=== PATIENT | female | born 1965 | race Caucasian/White ===

== ENCOUNTER 2018-12-04 01:23 | Outpatient (CLI) | payer BC, SELFPAY ==
--- NOTE | 2018-12-04 09:21 | DI.MAMMO_ITS ---
SYMPTOM/DIAGNOSIS: SCREENING, [facility], Z00.00 MAMMOGRAMS: Mammograms were interpreted according to the usual protocol including computer analysis with CAD system, tomosynthesis and C view imaging. Comparison is made with exams from [id number]. The breasts are composed of scattered fibroglandular densities. Breast density, category B. No suspicious masses or suspicious microcalcifications are seen. There has been no significant change. IMPRESSION: Category 1, negative mammogram. Yearly screening mammography is recommended. [facility] ASSESSMENT OF FINDINGS: Negative. Category 1. Patient will receive a letter notifying them of these results. BI-RADS category B. There are scattered areas of fibroglandular density.
== END 2018-12-04 01:43 ==
PROVIDERS: PCP Family Medicine; Visit Provider Family Medicine
DX: Z00.00 Encounter for general adult medical examination without abnormal findings (principal); Z12.31 Encounter for screening mammogram for malignant neoplasm of breast
CPT/HCPCS: 77063; 77067

== ENCOUNTER 2019-01-13 12:34 | Outpatient (REF) | payer BC, SELFPAY | END 2019-01-13 12:54 | LOC: NCHCN 12:34 | PROVIDERS: PCP Family Medicine; Visit Provider Family Medicine | DX: J02.9 Acute pharyngitis, unspecified (principal) | CPT/HCPCS: 87070 ==

== ENCOUNTER 2019-03-11 12:44 | Outpatient (REF) | payer BC, SELFPAY ==
[2019-03-13 09:10] LABS: HSV 1 DNA Result Negative; HSV 2 DNA Result Negative; Varicella Zoster DNA Result Negative
== END 2019-03-11 13:04 ==
LOC: NCHCN 12:44
PROVIDERS: PCP Family Medicine; Visit Provider Family Medicine
DX: R21 Rash and other nonspecific skin eruption (principal)
CPT/HCPCS: 87529; 87798

== ENCOUNTER 2019-04-19 15:05 | Outpatient (REF) | payer BC, SELFPAY ==
[2019-04-19 19:24] LABS: ALT 46 U/L (12-78); AST 21 U/L (15-37); Albumin 3.8 g/dL (3.4-5.0); Alkaline Phosphatase 74 U/L (46-116); Bilirubin, Direct 0.05 mg/dL (0.00-0.20); Bilirubin, Total 0.2 mg/dL (0.2-1.0); Total Protein 6.8 g/dL (6.4-8.2)
== END 2019-04-19 15:25 ==
LOC: NCHCN 15:05
PROVIDERS: PCP Family Medicine; Visit Provider Family Medicine
DX: Z79.899 Other long term (current) drug therapy (principal)
CPT/HCPCS: 80076

== ENCOUNTER 2019-08-16 17:15 | Outpatient (REF) | payer BC, SELFPAY ==
--- NOTE | 2019-08-16 14:30 | SKI_PTH ---
PATIENT: Swetha Herron LOC: [facility] U#:[id number] AGE/SX: 54/F ROOM: RE08/16/[address]: Chantal Wallis : 1965 BED: DIS: 08/16/2019 SPEC #: [id number] RECD: 08/16/19 18:30 STATUS: VICENTA REGenet #: [id number] MACIE: 08/16/19 14:[address]: Chantal Wallis DEPT: Surgical Specimen RECD BY: Polly Green Tissues: 1 - SKIN BIOPSY(SHAVE/PUNCH) Procedures: SKIN LEVEL 4 Comments: [id number]
== END 2019-08-16 17:35 ==
LOC: NCHCN 17:15
PROVIDERS: PCP Family Medicine; Visit Provider Family Medicine
DX: D48.5 Neoplasm of uncertain behavior of skin (principal); R22.41 Localized swelling, mass and lump, right lower limb
CPT/HCPCS: 88305

== ENCOUNTER 2019-09-17 15:36 | Outpatient (REF) | payer BC, SELFPAY ==
[2019-09-20 10:57] LABS: TSH (W/Ref FT4) 2.62 uIU/mL (0.36-3.74)
== END 2019-09-17 15:56 ==
LOC: NCHCN 15:36
PROVIDERS: PCP Family Medicine; Visit Provider Family Medicine
DX: E03.9 Hypothyroidism, unspecified (principal); R73.03 Prediabetes
CPT/HCPCS: 83036; 84443

== ENCOUNTER 2020-02-18 02:15 | Outpatient (CLI) | payer BC, SELFPAY ==
--- NOTE | 2020-02-18 | DI.MAMMO_ITS ---
EXAM: MAMMO SCREENING CLINICAL HISTORY: SCREENING, [facility],Z00.00 TECHNIQUE: Mammograms were interpreted according to the usual protocol including computer analysis w [employer] CAD system, tomosynthesis and C-view imaging. COMPARISON: 2011 through 2018 FINDINGS: The breasts are composed of scattered fibroglandular densities, Breast Density category B. No suspicious masses or suspicious microcalcifications are seen. No skin thickening or abnormal axillary lymph nodes are seen. There has been no significant change from prior exams. IMPRESSION: BI-RADS category 1, yearly screening mammography is recommended. Breast density category B, scattered fibroglandular densities.
== END 2020-02-18 02:35 ==
PROVIDERS: PCP Family Medicine; Visit Provider Family Medicine
DX: Z00.00 Encounter for general adult medical examination without abnormal findings (principal); Z12.31 Encounter for screening mammogram for malignant neoplasm of breast
CPT/HCPCS: 77063; 77067

== ENCOUNTER 2020-04-21 18:03 | Outpatient (REF) | payer BC, SELFPAY ==
[2020-04-21 20:03] LABS: ALT 45 U/L (14-59); AST 23 U/L (15-37); Albumin 4.1 g/dL (3.4-5.0); Alkaline Phosphatase 78 U/L (46-116); Anion Gap 7.4 mmol/L (3-11); BUN 16 mg/dL (7-18); Bilirubin, Total 0.3 mg/dL (0.2-1.0); CO2 27.6 mmol/L (21.0-32.0); CREATININE 0.84 mg/dL (0.55-1.02); Calcium 9.3 mg/dL (8.5-10.1); Calculated LDL 164 mg/dL (<100); Chloride 105 mmol/L (98-107); Cholesterol 276 mg/dL (<200); Glucose 110 mg/dL (74-106); HDL Cholesterol 63 mg/dL (40-60); Potassium 4.6 mmol/L (3.5-5.1); Sodium 140 mmol/L (136-145); TSH (W/Ref FT4) 1.44 uIU/mL (0.36-3.74); Total Protein 7.1 g/dL (6.4-8.2); Triglyceride 246 mg/dL (<150)
[2020-04-21 21:34] LABS: Hemoglobin A1C 5.9 % (3.8-5.6)
== END 2020-04-21 18:23 ==
LOC: NCHCN 18:03
PROVIDERS: PCP Family Medicine; Visit Provider Family Medicine
DX: I10 Essential (primary) hypertension (principal); R73.03 Prediabetes; E03.9 Hypothyroidism, unspecified; E78.5 Hyperlipidemia, unspecified
CPT/HCPCS: 80053; 80061; 83036; 84443

== ENCOUNTER 2021-04-20 10:28 | Outpatient (REF) | payer BC, SELFPAY ==
[2021-04-20 15:46] LABS: Hemoglobin A1C 6.3 % (<5.7)
[2021-04-20 17:03] LABS: Anion Gap 11.3 mmol/L (3-11); BUN 12 mg/dL (7-18); CO2 26.7 mmol/L (21.0-32.0); CREATININE 0.8 mg/dL (0.55-1.02); Calcium 8.9 mg/dL (8.5-10.1); Calculated LDL 159 mg/dL (<100); Chloride 106 mmol/L (98-107); Cholesterol 254 mg/dL (<200); Glucose 126 mg/dL (74-106); HDL Cholesterol 67 mg/dL (40-60); Potassium 4.2 mmol/L (3.5-5.1); Sodium 144 mmol/L (136-145); TSH (W/Ref FT4) 2.91 uIU/mL (0.36-3.74); Triglyceride 141 mg/dL (<150)
== END 2021-04-20 10:29 | disposition home or self-care (01) ==
LOC: NCHCN 10:28
PROVIDERS: PCP Family Medicine; Visit Provider Family Medicine
DX: I10 Essential (primary) hypertension (principal); R73.03 Prediabetes; E78.5 Hyperlipidemia, unspecified; E03.9 Hypothyroidism, unspecified
CPT/HCPCS: 80048; 80061; 83036; 84443

== ENCOUNTER 2021-05-29 03:14 | Outpatient (CLI) | payer BC, SELFPAY ==
--- NOTE | 2021-05-29 | DI.MAMMO_ITS ---
Exam(s) MAMMO SCREENING EXAM: MAMMO SCREENING CLINICAL HISTORY: SCREENING,Z12.31 TECHNIQUE: Mammograms were interpreted according to the usual protocol including computer analysis w [employer] CAD system, tomosynthesis and C-view imaging. COMPARISON: 2011 through 2019 FINDINGS: The breasts are composed of scattered fibroglandular densities, Breast Density category B. No suspicious masses or suspicious microcalcifications are seen. No skin thickening or abnormal axillary lymph nodes are seen. There has been no significant change from prior exams. IMPRESSION: BI-RADS Category 1, Negative mammogram Yearly screening mammography is recommended. Breast Density - Category B, scattered fibroglandular densities. A negative radiographic report should not delay biopsy if a dominant or clinically suspicious mass is present. Up to ten percent of cancers are not identified on mammography. A negative report may reinforce clinical impression. Adenosis and dense breasts may obscure an underlying neoplasm. False positive reports average 6 to 10%. Patient will receive a letter notifying them of these results.
== END 2021-05-29 03:34 ==
PROVIDERS: PCP Family Medicine; Visit Provider Family Medicine
DX: Z12.31 Encounter for screening mammogram for malignant neoplasm of breast (principal)
CPT/HCPCS: 77063; 77067

== ENCOUNTER 2021-08-02 14:04 | Outpatient (REF) | payer BC, SELFPAY ==
[2021-08-03 02:10] LABS: Hemoglobin A1C 5.9 % (<5.7)
== END 2021-08-02 14:05 | disposition home or self-care (01) ==
LOC: NCHCN 14:04
PROVIDERS: PCP Family Medicine; Visit Provider Family Medicine
DX: R73.03 Prediabetes (principal)
CPT/HCPCS: 83036

== ENCOUNTER 2021-11-30 18:24 | Outpatient (REF) | payer BC, SELFPAY ==
[2021-11-30 19:13] LABS: TSH (W/Ref FT4) 0.05 uIU/mL (0.36-3.74)
[2021-11-30 19:20] LABS: Hemoglobin A1C 5.8 % (<5.7)
[2021-11-30 19:44] LABS: FREE T4 1.38 ng/dL (0.76-1.46)
[2021-12-03 13:34] LABS: HIV-1/2 Ag & Ab Screen Negative (Negative)
[2021-12-03 14:56] LABS: Hepatitis C Ab w Rflx HCV PCR Negative (Negative)
== END 2021-11-30 18:25 | disposition home or self-care (01) ==
LOC: NCHCN 18:24
PROVIDERS: PCP Family Medicine; Visit Provider Family Medicine
DX: Z00.00 Encounter for general adult medical examination without abnormal findings (principal); E03.9 Hypothyroidism, unspecified; R73.03 Prediabetes; Z11.4 Encounter for screening for human immunodeficiency virus [HIV]; Z11.59 Encounter for screening for other viral diseases
CPT/HCPCS: 86803; 87389; 83036; 84439; 84443

== ENCOUNTER 2022-02-23 13:06 | Outpatient (REF) | payer BC, SELFPAY ==
[2022-02-23 13:31] LABS: ALT 48 U/L (14-59); AST 21 U/L (15-37); Albumin 3.6 g/dL (3.4-5.0); Alkaline Phosphatase 85 U/L (46-116); BUN 11 mg/dL (7-18); Bilirubin, Total 0.3 mg/dL (0.2-1.0); CREATININE 0.9 mg/dL (0.55-1.02); Calcium 8.7 mg/dL (8.5-10.1); Chloride 105 mmol/L (98-107); Glucose 153 mg/dL (74-106); Potassium 3.8 mmol/L (3.5-5.1); Sodium 140 mmol/L (136-145); Total Protein 6.4 g/dL (6.4-8.2)
[2022-02-26 12:24] LABS: TSH (W/Ref FT4) 0.06 uIU/mL (0.36-3.74)
[2022-02-26 12:41] LABS: FREE T4 1.24 ng/dL (0.76-1.46)
== END 2022-02-23 13:07 | disposition home or self-care (01) ==
LOC: LBN 13:06
PROVIDERS: PCP Family Medicine; Visit Provider Physician Assistant Medical
DX: U07.1 COVID-19 (principal)
CPT/HCPCS: 80053; 84439; 84443

== ENCOUNTER 2022-02-28 15:05 | Outpatient (CLI) | payer BC, SELFPAY ==
--- NOTE | 2022-02-28 14:30 | DI.RAD_ITS ---
Exam(s) XR KNEE RT 3V AP,LAT,AL EXAM: XR KNEE RT 3V AP,LAT,AL CLINICAL HISTORY: right knee pain. TECHNIQUE: 2D digital imaging was performed. COMPARISON: CR RIGHT KNEE LIMITED 1 OR 2 VIEW from 05/22/2017 FINDINGS: 3 views There is no evidence of fracture nor large joint effusion. There is small amount of increased joint fluid. There are moderate degenerative changes in the medial compartment with mild medial joint spac e narrowing and marginal osteophytes off the medial compartment. The lateral compartment exhibits no rmal height. Some degenerative change also evident in the patellofemoral compartment. IMPRESSION: Degenerative changes in the medial and patellofemoral compartments. Small amount of increased joint fluid. DATA REPOSITORY: RADIATION DOSE DELIVERED:
== END 2022-02-28 15:06 | disposition home or self-care (01) ==
LOC: DIORS 15:05
PROVIDERS: PCP Family Medicine; Referring Provider Family Medicine; Visit Provider Physician Assistant
DX: M17.11 Unilateral primary osteoarthritis, right knee (principal)
CPT/HCPCS: 73562

== ENCOUNTER 2022-05-09 15:11 | Outpatient (REF) | payer BC, SELFPAY ==
--- OUTSIDE RECORDS SUMMARY | 2022-05-09 15:18 | XMS_ITS | Encounter Summary ---
:1965 Author Organization [facility] Address [address] [place] [address] Care Team Providers Name Role Phone Unavailable Primary Care Provider Unavailable Encounter Details Date Type Department Care Team Description 06/10/2005 Results Only [facility] - Chantal Avina MD conversion [address] [facility] [address] [place] [phone] (Wo rk) Social History Tobacco Use Types Packs/Day Years Used Date Never Assessed Sex Assigned at Date Recorded Not on file documented as of this encounter Plan of Treatment Not on filedocumented as of this encounter Procedures Procedure Name Priority Date/Time Associated Diagnosis Comme nts CYTOPATHOLOGY Routine 06/10/2005 0:00 EDT Results for this procedure are i n the results section . documented in this encounter Results CYTOPATHOLOGY (06/10/2005 0:00 EDT) Pathology Report: CYTOPATHOLOGY REPORT [facility] Reports generated via electronic interface contain shelley ginal data; however they are lacking the format of the original re port. Caution should be taken when reading/interpreting unfo rmatted reports. Name: ? CRISS MONROE ? Accession #: ? [id number] : ? 1965 (Age: 40) ??F ?Collect Date: ? 05/23 Location: ? [facility] ? Receive Date : ? 06/12/2005 Provider: ?CHANTAL PETERSON MD Copy to: ? Specimen/Source: ? ThinPrep Pap Test, Cervix/Endocervix, processed on [employer] ThinPrep Imaging System, with manual evaluation Last Menstrual Period: ? 05/27/05 Treatment History: ? Miscellaneous treatment: D+C 11/23 and 07/26 Other: ? HPVA - HPV testing requested if ASC-US on the current ThinPrep Pap test. ? SPECIMEN ADEQUACY ? Satisfactory for Evaluation - transformation zone component present GENERAL CATEGORIZATION ? Negative for Intraepithelial Lesion or Malignan cy ? Document reviewed and electronically signed by: ? Ana Mari, SCT(ASCP) ? Report Date: ??06/19/2005 10:20 End of Report Specimen Performing Organization Address City/State/ZIP Code Phon e Number [facility] [address] [place] [address] SERVICES [facility] [address] [place] [address] documented in this encounter Visit Diagnoses Not on filedocumented in this encounter
--- OUTSIDE RECORDS SUMMARY | 2022-05-09 15:18 | XMS_ITS | Encounter Summary ---
:1965 Author Organization [facility] Address [address] [place] [address] Care Team Providers Name Role Phone Unknown, Provider Primary Care Provider Encounter Details Date Type Department Care Team Description 11/30/2021 Lab Requisition [facility] Outr Resulting Lab, Pathology & Laboratory Provider [facility] [address] [place] [address] Social History Tobacco Use Types Packs/Day Years Used Date Never Assessed Sex Assigned at Date Recorded Not on file documented as of this encounter Plan of Treatment Not on filedocumented as of this encounter Procedures Procedure Name Priority Date/Time Associated Comments Diagnosis HIV 1/2 ANTIGEN AND Routine 11/30/2021 15:44 Resu lts for this ANTIBODY, 4TH EST procedure are in GENERATION the results section. documented in this encounter Results HIV 1/2 ANTIGEN AND ANTIBODY, 4TH GENERATION (11/30/2021 15:44 EST) HIV 1 and 2 NegativeComment: If Negative [facility] Antibody/p24 acute HIV-1 LABORATORY Antigen, 4th infection is SERVICES Generation suspected in a high risk patient, submit plasma specimen for HIV-1 RNA quantitation test. Specimen Blood - Venous blood (substance) Narrative [facility] SERVICES - 12/03/2021 13:29 EDT Fourth Generation assay performed on the Siemens Centaur XPT. Performing Organization Address City/State/ZIP Code Phon e Number [facility] [address] [place] [address] SERVICES documented in this encounter Visit Diagnoses Not on filedocumented in this encounter Care Teams Telephone Directory Distributor Driver Relationship Specialty Start Date End Date Unknown, Provider, PCP - General 08/14/15 documented as of this encounter
--- OUTSIDE RECORDS SUMMARY | 2022-05-09 15:18 | XMS_ITS | Encounter Summary ---
:1965 Author Organization [facility] Address [address] [place] [address] Care Team Providers Name Role Phone Unavailable Primary Care Provider Unavailable Encounter Details Date Type Department Care Team Description 05/26/2003 Results Only [facility] - Chantal Avina MD conversion [address] [facility] [address] [place] [phone] (Wo rk) Social History Tobacco Use Types Packs/Day Years Used Date Never Assessed Sex Assigned at Date Recorded Not on file documented as of this encounter Plan of Treatment Not on filedocumented as of this encounter Procedures Procedure Name Priority Date/Time Associated Diagnosis Comme nts CYTOPATHOLOGY Routine 05/26/2003 0:00 EDT Results for this procedure are i n the results section . documented in this encounter Results CYTOPATHOLOGY (05/26/2003 0:00 EDT) Pathology Report: CYTOPATHOLOGY REPORT [facility] Reports generated via electronic interface contain shelley ginal data; however they are lacking the format of the original re port. Caution should be taken when reading/interpreting unfo rmatted reports. Name: ? CRISS MONROE ? Accession #: ? [id number] : ? 1965 (Age: 38) ??F ?Collect Date: ? 12/2002 Location: ? [facility] ? Receive Date : ? 05/30/2003 Provider: ?CHANTAL PETERSON MD Copy to: ? Specimen/Source: ?ThinPrep Pap Test, Cervix/ Endocervix Last Menstrual Period: ? 05/18/03 Other: ? HPVA - HPV testing requested if ASC-US on the current ThinPrep Pap test. ? SPECIMEN ADEQUACY ? Satisfactory for Evaluation - transformation zone component present GENERAL CATEGORIZATION ? Negative for Intraepithelial Lesion or Malignan cy ? Document reviewed and electronically signed by: ? TERESA Lopez(ASCP) ? Report Date: ??06/01/2003 10:20 End of Report Specimen Performing Organization Address City/State/ZIP Code Phon e Number [facility] [address] [place] [address] SERVICES [facility] [address] [place] [address] documented in this encounter Visit Diagnoses Not on filedocumented in this encounter
--- OUTSIDE RECORDS SUMMARY | 2022-05-09 15:18 | XMS_ITS | Encounter Summary ---
:1965 Author Organization [facility] [place] [address] Care Team Providers Name Role Phone Chantal Wallis MD Primary Care Provider Reason for Visit Reason Comments Angioedema Encounter Details Date Type Department Care Team Description 04/08/2011 Office Visit Allergy at [facility] Esperanza Oakley, Urticaria (Primary Dx) [facility] [place] [address] ALLERGY AND [phone] IMMUNOLOGY [place], [place] [address] Social History Tobacco Use Types Packs/Day Years Used Date Never Smoker Smokeless Tobacco: Never Used Alcohol Use Standard Drinks/Week Comments Not Asked 0 (1 standard drink = 0.6 oz pure alcoho l) Sex Assigned at Date Recorded Not on file documented as of this encounter Last Filed Vital Signs Vital Sign Reading Time Taken Comments Blood Pressure 128/79 04/08/2011 10:17 AM EDT Pulse 75 04/08/2011 10:17 AM EDT Temperature - - Respiratory Rate - - Oxygen Saturation - - Inhaled Oxygen Concentration - - Weight 99.8 kg (220 lb) 04/08/2011 10:17 AM EDT Height 170.2 cm (5' 7) 04/08/2011 10:17 AM EDT Body Mass Index 34.46 04/08/2011 10:17 AM EDT documented in this encounter Progress Notes Esperanza Oakley MD - 04/08/2011 1:26 PM EDT Subjective: Patient ID: Swetha Herron is a 46 y.o. female. HPIRufusliwinston is seen at the request of Dr Wallis for evaluation of urticaria/angioedema. She reports intermittent urticaria for approx. 20 yrs . She had an episode of hives this past springfor which she took Zyrtec 10 mg which helped somewhat, however on 01/23 she ate a cupcake made with almond flour and thereafter developed lip swelling, for which she was treated in the ER with prednisoneand antihistamines. She has avoided tree nuts since then.She now has an Epipen but has not ever usedit. She states that she has not had hives in approx. 1 mo. Prior to that the hives were itchy and painful and seemed to last longer than previously.Other than almond flour she has not noted any specific triggers for the symptoms.She has never had resp. difficulty with the hives. She has been on lisinopril for several yrs for rx of HTN. PH: urticaria,angioedema,HTN,hypothyroidism Current outpatient prescriptions:cetirizine (ZYRTEC) 10 mg tablet, Take 10 mg by mouth daily., Disp:, Rfl: ; levothyroxine (SYNTHROID) 125 mcg tablet, , Disp: , Rfl: ; multivitamin (DAILY MULTIPLE) tablet, , Disp: , Rfl: ; Glucosamine Sulfate 500 mg Cap, , Disp: , Rfl: ; lisinopril (PRINIVIL;ZESTRIL)5 mg tablet, , Disp: , Rfl: norethindrone-ethinyl estradiol (LOESTRIN FE ,) 1-20 mg-mcg per tablet, 1 Tablet(s), PO, Once daily, Disp: , Rfl: ; medroxyPROGESTERone (PROVERA) 10 mg tablet, , Disp: , Rfl: Allergies Allergen Reactions ??? Neomycin Sulfate CIS - Localized Reaction ??? Bacitracin CIS - Localized Reaction ??? Polymyxin B CIS - Localized Reaction ??? Gramicidin D CIS - Localized Reaction FH: non contributory for this visit SH: works as vet Review of Systems Constitutional: Negative. HENT: See HPI Eyes: Negative. Respiratory: Negative. Cardiovascular: HTN Gastrointestinal: Negative. Musculoskeletal: Negative. Skin: see HPI Neurological: Negative. Psychiatric/Behavioral: Negative. Objective: Physical Exam Constitutional: She is oriented to person, place, and time. No distress. HENT: Right Ear: External ear normal. Left Ear: External ear normal. Mouth/Throat: Oropharynx is clear and moist. Eyes: Conjunctivae are normal. Right eye exhibits no discharge. Left eye exhibits no discharge. Pulmonary/Chest: Breath sounds normal. Neurological: She is alert and oriented to person, place, and time. Skin: No rash noted. Psychiatric: She has a normal mood and affect. Allergy skin testing was done to pecan,walnut,cashew,hazelnut,almond, brazil nut and controls. Histamine was + in mm wheal/flare -the remainder were negative 8 tests were done Assessment and Plan: This patient has had intermittent urticaria for approx. 20 years,and had an episode of lip swelling in 01/30 after eating a cupcake containing almond flour. Skin testing today was negative to tree nuts ,therefore I have ordered RAST to tree nuts,which she is to avoid for the time being.We discussed the use and indications for Epipen . If she needs to use it she should go to the ER for evaluation. Since she has not had urticaria in a month she will discontinue Zyrtec however should the hives recur she should resume it. As I discussed with her ,lisinopril, being an JOHN inhibitor, has the potential to cause exacerbations of angioedema therefore ,if possible, an alternative to this would be preferable. We discussed the fact that urticaria occurring for more than 6 weeks is chronic and often no specific etiology can be identified. Some hives are due to anti-IgE antibodies directed toward IgE receptorson the surface of skin mast cells and,when cross linkage occurs between the receptors and antibodies, this leads to mast cell degranulation and release of histamine leading to formation of urticarial lesions. This is considered to be autoimmune urticaria. I ordered thyroid autoantibodies,a marker of autoimmunity, which, if present, would lend support to the concomitant possibility of autoimmune urticaria. A sed. rate was ordered ,which if elevated, could indicate a vasculitic process . I will contact her with the results of all tests when available. 35min of this 60 min visit were spent in counseling on the above problem. Thank you for this referral. documented in this encounter Plan of Treatment Not on filedocumented as of this encounter Procedures Procedure Name Priority Date/Time Associated Comments Diagnosis THYROGLOBULIN ANTIBODY Routine 04/08/2011 11:47 Urticaria R esults for this AM EDT procedure are i n the results section. DIFFERENTIAL, Routine 04/08/2011 11:47 Results fo r this AUTOMATED AM EDT procedure are i n the results section. THYROID PEROXIDASE Routine 04/08/2011 11:47 Urticaria Resul ts for this ANTIBODY AM EDT procedure are i n the results section. ALMOND IGE Routine 04/08/2011 11:47 Urticaria Results for this AM EDT procedure are i n the results section. HAZELNUT IGE Routine 04/08/2011 11:47 Urticaria Results for this AM EDT procedure are i n the results section. CASHEW IGE Routine 04/08/2011 11:47 Urticaria Results for this AM EDT procedure are i n the results section. WALNUT IGE Routine 04/08/2011 11:47 Urticaria Results for this AM EDT procedure are i n the results section. BRAZIL NUT IGE Routine 04/08/2011 11:47 Urticaria Results f or this AM EDT procedure are i n the results section. PECAN IGE Routine 04/08/2011 11:47 Urticaria Results for this AM EDT procedure are i n the results section. SEDIMENTATION RATE Routine 04/08/2011 11:47 Urticaria Resul ts for this AM EDT procedure are i n the results section. CBC (WITH DIFF) Routine 04/08/2011 11:47 Urticaria Results for this AM EDT procedure are i n the results section. documented in this encounter Results REFLEX LAB-A-DIFF (04/08/2011 11:47 AM EDT) P athologist Signature Neutrophils % 65.5 34.0 - CERNER 71.0 % MILLENNIUM Neutr Abs (ANC) 4.04 1.50 - CERNER 6.30 MILLENNIUM x10(3)/mcL Lymphocytes % 25.9 19.0 - CERNER 53.0 % MILLENNIUM Lymphocytes Abs 1.6 1.0 - 3.6 CERNER x10(3)/mcL MILLENNIUM Monocytes % 6.0 4.0 - 13.0 CERNER % MILLENNIUM Monocyte Abs 0.4 0.2 - 1.0 CERNER x10(3)/mcL MILLENNIUM Eosinophils % 2.4 0.0 - 7.0 CERNER % MILLENNIUM Eosinophils Abs 0.2 0.0 - 0.5 CERNER x10(3)/mcL MILLENNIUM Basophils % 0.0 0.0 - 2.0 CERNER % MILLENNIUM Basophils Abs 0.0 0.0 - 0.2 CERNER x10(3)/mcL MILLENNIUM Immature Gran % 0.20 0.00 - CERNER 0.66 % MILLENNIUM Comment: Immature granulocytes(IG's)percentage an d absolute count will include metamyelocytes, myelocytes, and promyelo cytes. Blood smears from CBCs yielding IG's will be scanned manually for concor dance. If this scan disagrees with the automated IG or if promyelocytes are not ed, a manual differential will be performed. Diana Gran Abs 0.01 0.00 - 0.05 x10(3)/mcL CER NER MILLENNIUM Specimen Anatomical Collection Method Collection Time Receive d Time (Source) Location / / Volume Laterality Blood specimen 04/08/2011 11:47 1 (specimen) AM EDT 11:57 AM EDT Esperanza Oakley MD HEMATOLOGY ORDERABLES Performing Organization Address City/[facility] Code Phon e Number [address] [facility] Thyroglobulin Antibody (04/08/2011 11:47 AM EDT) athologist Signature Thyroglob Ab <20.0 0.0 - 40.0 CERNER IU/mL MILLENNIUM Comment: Assay performed is the [facility]PC Immulite Tg-A b immunometric assay. (Cutoff for TgAb negativity is <20 IU/ml ) Specimen Anatomical Collection Method Collection Time Receive d Time (Source) Location / / Volume Laterality Blood specimen 04/08/2011 11:47 1 2:28 (specimen) AM EDT PM EDT Esperanza Oakley MD CHEMISTRY ORDERABLES Performing Organization Address City/[facility]/ZIP Code Phon e Number [address] [facility] ([facility]NORMAL[facility] Thyroid peroxidase antibody (04/08/2011 11:47 AM EDT) athologist Signature Thyroperox Ab 336 (H) <=34 IU/mL CERNER [facility] Specimen Anatomical Collection Method Collection Time Receive d Time (Source) Location / / Volume Laterality Blood specimen 04/08/2011 11:47 1 2:28 (specimen) AM EDT PM EDT Esperanza Oakley MD IMMUNOLOGY ORDERABLES Performing Organization Address City/State/ZIP Code Phon e Number [address] [facility] Sedimentation rate (04/08/2011 11:47 AM EDT) athologist Signature Sed Rate 12 0 - 20 CERNER mm/hr [facility] Specimen Anatomical Collection Method Collection Time Receive d Time (Source) Location / / Volume Laterality Blood specimen 04/08/2011 11:47 1 (specimen) AM EDT 11:57 AM EDT Esperanza Oakley MD HEMATOLOGY ORDERABLES Performing Organization Address City/State/ZIP Code Phon e Number [address] [facility] CBC (with Diff) (04/08/2011 11:47 AM EDT) athologist Signature WBC 6.2 4.0 - 10.0 CERNER x10(3)/mcL MILLENNIUM RBC 4.31 3.93 - 5.22 CERNER x10(6)/mcL MILLENNIUM Hemoglobin 13.5 11.2 - 15.7 CERNER gm/dL MILLENNIUM Hematocrit 38.3 34.0 - 45.0 CERNER % MILLENNIUM MCV 88.9 79.0 - 94.0 CERNER fL MILLENNIUM MCH 31.3 26.6 - 32.2 CERNER pg MILLENNIUM MCHC 35.2 32.0 - 36.5 CERNER gm/dL MILLENNIUM Platelets 261 145 - 370 CERNER x10(3)/mcL MILLENNIUM RDWSD 40.8 35.0 - 46.0 CERNER fL MILLENNIUM RDWCV 12.6 10.9 - 14.4 CERNER % MILLENNIUM MPV 10.1 9.0 - 12.0 CERNER fL [facility] Specimen Anatomical Collection Method Collection Time Receive d Time (Source) Location / / Volume Laterality Blood specimen 04/08/2011 11:47 1 (specimen) AM EDT 11:57 AM EDT Esperanza Oakley MD HEMATOLOGY ORDERABLES Performing Organization Address City/State/ZIP Code Phon e Number [address] [facility] [place] IgE (04/08/2011 11:47 AM EDT) P athologist Signature [place] IgE <0.35 kU/L [facility] Comment: Class 0 (Negative <0.35) Test Performed by: [facility] Dpt of Lab Med and Pathology [address] [place] [address] Special Events Coordinator: Remberto loomis III, M.D. Specimen Anatomical Collection Method Collection Time Receive d Time (Source) Location / / Volume Laterality Blood specimen 04/08/2011 11:47 1 1:10 (specimen) AM EDT PM EDT Esperanza Oakley MD IMMUNOLOGY ORDERABLES Performing Organization Address City/[facility]/ZIP Code Phon e Number [address] [facility] [place] nut IgE (04/08/2011 11:47 AM EDT) P athologist Signature [place] IgE <0.35 kU/L [facility] Comment: Class 0 (Negative <0.35) Test Performed by: [facility] Dpt of Lab Med and Pathology [address] [place] [address] Special Events Coordinator: Remberto loomis III, M.D. Specimen Anatomical Collection Method Collection Time Receive d Time (Source) Location / / Volume Laterality Blood specimen 04/08/2011 11:47 1 1:10 (specimen) AM EDT PM EDT Esperanza Oakley MD IMMUNOLOGY ORDERABLES Performing Organization Address City/State/ZIP Code Phon e Number [address] CERNER MILLENNIUM [place] IgE (04/08/2011 11:47 AM EDT) P athologist Signature [place] IgE <0.35 kU/L CERNER MILLENNIUM Comment: Class 0 (Negative <0.35) Test Performed by: [facility] Dpt of Lab Med and Pathology [address] [place], [place] [address] Special Events Coordinator: Remberto loomis III, M.D. Specimen Anatomical Collection Method Collection Time Receive d Time (Source) Location / / Volume Laterality Blood specimen 04/08/2011 11:47 1 1:10 (specimen) AM EDT PM EDT Esperanza Oakley MD IMMUNOLOGY ORDERABLES Performing Organization Address City/[facility] Phon e Number [address] CERNER MILLENNIUM [place] IgE (04/08/2011 11:47 AM EDT) athologist Signature [place] IgE <0.35 kU/L CERNER MILLENNIUM Comment: Class 0 (Negative <0.35) Test Performed by: [facility] Dpt of Lab Med and Pathology [address] [place] [address] Special Events Coordinator: Remberto loomis III, M.D. Specimen Anatomical Collection Method Collection Time Receive d Time (Source) Location / / Volume Laterality Blood specimen 04/08/2011 11:47 1 1:10 (specimen) AM EDT PM EDT Esperanza Oakley MD IMMUNOLOGY ORDERABLES Performing Organization Address City/[facility] Code Phon e Number [address] CERNER MILLENNIUM [place] IgE (04/08/2011 11:47 AM EDT) P athologist Signature [place] IgE <0.35 kU/L CERNER MILLENNIUM Comment: Class 0 (Negative <0.35) Test Performed by: [facility] Dpt of Lab Med and Pathology [address] [place], [place] [address] Special Events Coordinator: Remberto loomis III, M.D. Specimen Anatomical Collection Method Collection Time Receive d Time (Source) Location / / Volume Laterality Blood specimen 04/08/2011 11:47 1 1:10 (specimen) AM EDT PM EDT Esperanza Oakley MD IMMUNOLOGY ORDERABLES Performing Organization Address City/[facility]/ZIP Code Phon e Number [place] [phone] CERNER MILLENNIUM [place] IgE (04/08/2011 11:47 AM EDT) athologist Signature [place] IgE <0.35 kU/L CERNER MILLENNIUM Comment: Class 0 (Negative <0.35) Test Performed by: [facility] Dpt of Lab Med and Pathology [address] [place] [address] Special Events Coordinator: Remberto loomis III, M.D. Specimen Anatomical Collection Method Collection Time Receive d Time (Source) Location / / Volume Laterality Blood specimen 04/08/2011 11:47 1 1:10 (specimen) AM EDT PM EDT Esperanza Oakley MD IMMUNOLOGY ORDERABLES Performing Organization Address City/[facility]/ZIP Code Phon e Number [address] CERNER MILLENNIUM documented in this encounter Visit Diagnoses Diagnosis Urticaria - Primary Urticaria, unspecified documented in this encounter Care Teams Yarn Sizer Relationship Specialty Start Date End Date Chantal Wallis MD PCP - General 08/14/10 Rosi BAIRES [address] [place] [address] documented as of this encounter
--- OUTSIDE RECORDS SUMMARY | 2022-05-09 15:18 | XMS_ITS | Encounter Summary ---
:1965 Author Organization [facility] Address [address] [place] [address] Care Team Providers Name Role Phone Unavailable Primary Care Provider Unavailable Encounter Details Date Type Department Care Team Description 09/09/2013 Results Only [facility] Unknown, Fausto alves MD Laboratory Services - [facility] [address] [place] [address] Social History Tobacco Use Types Packs/Day Years Used Date Never Assessed Sex Assigned at Date Recorded Not on file documented as of this encounter Plan of Treatment Not on filedocumented as of this encounter Procedures Procedure Name Priority Date/Time Associated Diagnosis Comme nts PAP TEST- RESULT Routine 09/09/2013 0:00 EST Resu lts for this ONLY procedure are i n the results section. documented in this encounter Results PAP TEST- RESULT ONLY (09/09/2013 0:00 EST) Pathology Report: CYTOPATHOLOGY REPORT [facility] Reports generated via electronic interface contain shelley ginal data; however they are lacking the format of the original re port. Caution should be taken when reading/interpreting unfo rmatted reports. Name: ? CRISS MONROE AE ? Accession #: ? [id number] ? : ? 1965 (Age: 48) ??F ?Collect Da te: ? 09/09/2013 ? Location: ? [facility] ? Receive Date: ? 013 ? Provider: Copy to: PRAMOD PETERSON MD ? Final Report SPECIMEN ADEQUACY ? Satisfactory for Evaluation - transformation zone component present GENERAL CATEGORIZATION ? Negative for Intraepithelial Lesion or Malignan cy ?? Last Menstrual Period: 2010 Specimen/Source: ??Pap Test, Cervix/Endocervix, ThinPr ep Imaging System with manual evaluation Document reviewed and electronically signed by: ? Ramonita Mcmullen, [place](ASCP) ? Report ??Date: 09/16/2013 11:17 HPV with Pap Test ? Date Ordered: ? 09/16/2013 ? Status: ?? Signed Out ?Date Complete: ? 09/20/2013 ? By: ??S ystem Interface ? Date Reported: ? 09/20/2013 ? Interpretation RESULT: Negative for HPV. No E6 or E7 mRNA is detected from HPV types 16,18,31,3 3,35, 39,45,51,52,56,58,59,66, and 68 by food photographer media savanah amplification. Comments Document reviewed and electronically signed by: ? System Interface ? Report date: 09/20/2013 By the signature above, the attending physician certif ies that he/she has personally conducted a gross and/or microscopic examin ation of the described specimens and rendered or confirmed the above diagnosi s. End of Report Specimen Performing Organization Address City/State/ZIP Code Phon e Number [facility] [address] [place] [address] SERVICES [facility] [address] [place] [address] documented in this encounter Visit Diagnoses Not on filedocumented in this encounter
--- OUTSIDE RECORDS SUMMARY | 2022-05-09 15:18 | XMS_ITS | Encounter Summary ---
:1965 Author Organization [facility] Address [address] [place] [address] Care Team Providers Name Role Phone Unavailable Primary Care Provider Unavailable Encounter Details Date Type Department Care Team Description 04/02/2002 Results Only [facility] - Chantal Avina MD conversion [address] [facility] [address] [place] [phone] (Wo rk) Social History Tobacco Use Types Packs/Day Years Used Date Never Assessed Sex Assigned at Date Recorded Not on file documented as of this encounter Plan of Treatment Not on filedocumented as of this encounter Procedures Procedure Name Priority Date/Time Associated Diagnosis Comme nts CYTOPATHOLOGY Routine 04/02/2002 0:00 EDT Results for this procedure are i n the results section . documented in this encounter Results CYTOPATHOLOGY (04/02/2002 0:00 EDT) Pathology Report: CYTOPATHOLOGY REPORT [facility] Reports generated via electronic interface contain shelley ginal data; however they are lacking the format of the original re port. Caution should be taken when reading/interpreting unfo rmatted reports. Name: ? CRISS MONROE ? Accession #: ? [id number] : ? 1965 (Age: 37) ??F ?Collect Date: ? 03/22 Location: ? [facility] ? Receive Date : ? 04/06/2002 Provider: ?CHANTAL PETERSON MD Copy to: ? Specimen/Source: ?ThinPrep Pap Test, Cervix/ Endocervix Last Menstrual Period: ? 03/21/02 Other: ? [facility] - HPV testing requested if ASCUS/LILIBETH on the [facility] ent ThinPrep Pap test. ? SPECIMEN ADEQUACY ? Satisfactory for Evaluation - transformation zone component present GENERAL CATEGORIZATION ? Negative for Intraepithelial Lesion or Malignan cy ? Document reviewed and electronically signed by: ? NEWTON Palomo(ASCP) ? Report Date: ??04/09/2002 11:15 End of Report Specimen Performing Organization Address City/State/ZIP Code Phon e Number [facility] [address] [place] [address] SERVICES [facility] [address] [place] [address] documented in this encounter Visit Diagnoses Not on filedocumented in this encounter
--- OUTSIDE RECORDS SUMMARY | 2022-05-09 15:18 | XMS_ITS | Encounter Summary ---
:[address] [facility] Address [address] [place] [address] Care Team Providers Name Role Phone Unknown, Provider Primary Care Provider Encounter Details Date Type Department Care Team Description 08/17/2019 Lab Requisition [facility] Chantal Wallis MD Localized swelling, Pathology & [address] mass and l ump, right Laboratory Medicine DEQUAN 1 [facility] [place], [place] [address] [facility] [id number] [place] [address] Social History Tobacco Use Types Packs/Day Years Used Date Never Assessed Sex Assigned at Date Recorded Not on file documented as of this encounter Plan of Treatment Not on filedocumented as of this encounter Procedures Procedure Name Priority Date/Time Associated Diagnosis Comme nts SURGICAL PATHOLOGY Today 08/16/2019 14:30 Localized swelling , Results for this EST mass and lump, right procedu re are in lower limb the results section. documented in this encounter Results SURGICAL PATHOLOGY (08/16/2019 14:30 EST) Final Diagnosis A. SKIN OF LEG, RIGHT LIMA, SHAVE BIOPSY: [facility] Electronically - Atypical endophytic squamo us proliferation, involving biopsy base. See microscopic and comment. CENTER signed by SUZIE Nevarez MD on SERVICES 08/18/2019 at 0 908 Diagnosis The differential diagnosis [facility] Comment would include reactive CENTER process as well as a LABORATORY well-differentiated SERVICES squamous cell carcinoma. Cytologic atypia is not appreciated in the sections examined and additionally there are reactive changes with mixed inflammation and foreign body giant cell reaction. The lesion however extends to the biopsy base and therefore definitive determination cannot be made based on the sections examined. Clinical correlation is recommended. Microscopic Sections reveal [facility] Description hyperplastic epidermis CENTER with overlying LABORATORY orthokeratosis and SERVICES parakeratosis. The epidermis shows pseudoepitheliomatous hyperplasia extending to the biopsy base. Tongues and nests of reactive appearing squamous cells are seen. Additionally, there is mixed acute and chronic inflammation and foreign body giant cell reaction containing keratin material. The process extends to the biopsy base. Clinical History Nonhealing nodule on lima (R) [facility] Shave biopsy, CENTER ? squamous cell LABORATORY SERVICES Attestation By the signature below, [facility] Elec tronically the attending physician CENTER sign ed by Lary, certifies that they have LABORATORY Ariella Mayer MD on personally conducted a SERVICES 08/18 at 0908 gross and/or microscopic examination of the described specimens and rendered or confirmed the above diagnosis. Gross Received in formalin daniel d with proper patient identification (initials W, B) and nodule on (R lima) is a skin shave of a light butcher focally guerrier-white papule that measures 0.9 x 0.8 x 0.1 cm. [facility] Description argin is inked blue, the spe cimen is sectioned into 5 sections and entirely submitted in A1 and A2. [facility] Luke Tierney 08/17/2019 10:19 SERVICE S Scanned Images [facility] SERVICES Specimen Tissue - Skin (tissue) specimen (specime n) Performing Organization Address City/State/ZIP Code Phon e Number [facility] [address] [place] [address] SERVICES documented in this encounter Visit Diagnoses Diagnosis Localized swelling, mass and lump, right lower limb documented in this encounter Care Teams Covering And Lining Supervisor Relationship Specialty Start Date End Date Unknown, Provider, PCP - General 08/14/15 documented as of this encounter
--- OUTSIDE RECORDS SUMMARY | 2022-05-09 15:18 | XMS_ITS | Encounter Summary ---
:1965 Author Organization [facility] [place] [address] Care Team Providers Name Role Phone Chantal Wallis MD Primary Care Provider Reason for Visit Reason Comments Skin Check Consultation (Routine) - Specialty Diagnoses / Procedures Referred By Contact Refer red To Contact Dermatology Diagnoses Other injury of unspecified body region Blisters Chantal Wallis MD Hammer, Charles J, MD Procedures Blisters [address] [facility] [address] [place], [place] DERMATOLOGY [address] [place] [address] Fax: Referral ID Status Reason Start Date Expiration Date Visits V isits Requested Authorized [id number] 04/16/2017 04/16/2018 1 1 Encounter Details Date Type Department Care Team Description 05/20/2017 Office Visit Dermatology at [facility], Lichen planus; Marcial KRAMER Acrochordon; [address] Viral warts, unspecified type; [place] DERMATOLOGY Mucoid cyst of joint [place], [place] [address] [phone] Social History Tobacco Use Types Packs/Day Years Used Date Never Smoker Smokeless Tobacco: Never Used Alcohol Use Standard Drinks/Week Comments Not Asked 0 (1 standard drink = 0.6 oz pure alcoho l) Sex Assigned at Date Recorded Not on file documented as of this encounter Progress Notes [facility] MD - 05/20/2017 4:30 PM EDT PROBLEM: 1. Skin lesion of concern. 2. History of lichen planus, anterior shins. Swetha follows up and has a number of concerns. She has a mucoid cyst on her left second finger. She has verruca vulgaris of her right index finger. She has some brown spots around her neck. She has individual erythematous papules of LP on the lower anterior shins bilaterally. There is no associated lichen simplex. She requests a refill of her clobetasol cream which works great for her. A/P: 1. Lichen planus, lower anterior shins bilaterally. a. Refills given for clobetasol 0.05% cream, apply to itchy lichen planus papules on anterior shins daily b.i.d. p.r.n. Dispensed 15 g with 3 refills. One tube lasted her from 09/2013 to the present; she is certainly not overusing it. 2. Verruca vulgaris, right index finger. a. LN2 x3 applied to 2 small plantar warts along the right proximal nail fold/ right lateral nail fold of her right index finger. 3. Mucoid cyst, intermittent, left second finger. a. Currently not active. b. Discussed dermatologic treatment options for this should it recur. Surgery would be a last option. 4. Tags, neck. a. LN2 could be utilized to treat the skin tags on the right anterior base of her neck. Return to clinic here will be p.r.n. CC: Chantal Wallis MD documented in this encounter Plan of Treatment Not on filedocumented as of this encounter Visit Diagnoses Diagnosis Lichen planus Acrochordon Unspecified hypertrophic and atrophic co ndition of skin Viral warts, unspecified type Mucoid cyst of joint Ganglion of joint documented in this encounter Care Teams Transcripter Relationship Specialty Start Date End Date Chantal Wallis MD PCP - General 08/14/[address] [place] [id number] documented as of this encounter
--- OUTSIDE RECORDS SUMMARY | 2022-05-09 15:18 | XMS_ITS | Clinical Summary ---
:1965 Author Organization [facility] [place] [address] Care Team Providers Name Role Phone Chantal Wallis MD Primary Care Provider Allergies Active Allergy Reactions Severity Noted Date Comments Bacitracin CIS - Localized Reaction Gramicidin D CIS - Localized Reaction Neomycin Sulfate CIS - Local ized Reaction Polymyxin B CIS - Localized Reaction Medications Medication Sig Dispensed Refills Start Date End Date Status lisinopril 0 04/06/2009 Active (PRINIVIL;ZESTRIL) 5 mg tablet cetirizine (ZYRTEC) 10 Take 10 mg by 0 Active mg tablet mouth daily. clobetasol-emollient Apply to itchy 15 g 3 05/20/2017 Active (TEMOVATE E) 0.05 % lichen Planus Cream areas on anterior lima 1-2 time daily as needed. levothyroxine Take 200 mcg by 0 Active (SYNTHROID) 200 mcg mouth daily. Tablet omeprazole 20 mg Take by mouth. 0 Active Tablet, Delayed Release (E.C.) fluticasone (FLONASE) 1 spray daily. 0 Active 50 mcg/actuation [place], Suspension montelukast (SINGULAIR) Take 10 mg by 0 Active 10 mg Tablet mouth nightly. ranitidine (ZANTAC) 150 Take 150 mg by 0 Active mg Tablet mouth 2 times daily. Active Problems Problem Noted Date Hypothyroidism 06/08/2018 Essential hypertension 06/08/2018 Prediabetes 06/08/2018 Other chronic sinusitis 06/08/2018 Acrochordon 05/20/2017 Mucoid cyst of joint 05/20/2017 Lichen planus 10/19/2012 Urticaria 04/08/2011 Resolved Problems Problem Noted Date Resolved Date Viral warts 05/20/2017 06/08/2018 Family History Medical History Relation Comments Allergies Father Penicillin, sulfa Heart Disease Father Diabetes Mother Thyroid Disease Mother Relation Status Comments Father Mother Social History Tobacco Use Types Packs/Day Years Used Date Never Smoker Smokeless Tobacco: Never Used Alcohol Use Standard Drinks/Week Comments Not Asked 0 (1 standard drink = 0.6 oz pure alcoho l) Sex Assigned at Date Recorded Not on file Last Filed Vital Signs Vital Sign Reading Time Taken Comments Blood Pressure 133/79 06/08/2018 3:01 PM EDT Pulse 105 06/08/2018 3:01 PM EDT Temperature - - Respiratory Rate 18 06/08/2018 3:01 PM EDT Oxygen Saturation 99% 06/08/2018 3:01 PM EDT Inhaled Oxygen Concentration - - Weight 113.4 kg (249 lb 14.4 oz) 06/08/2018 3:01 PM EDT Height 170.2 cm (5' 7) 06/08/2018 3:01 PM EDT Body Mass Index 39.14 06/08/2018 3:01 PM EDT Plan of Treatment Health Maintenance Due Date Last Done Comments Covid-19 Vaccine (#1) 02/12/1969 HIV screen 02/12/1982 Hepatitis C Screening 02/12/1982 Lipid Screening 02/12/1982 Tdap adult 02/12/1983 Tetanus vaccine 02/12/1983 HPV test 02/12/1994 PAP Smear 02/12/1994 Breast Cancer Share Decision Needed 2004 Pre-DM monitoring (HgbA1C or FBG) 2004 Colonoscopy 02/12/2009 Breast Cancer screening 02/12/2014 Zoster vaccine (1 of 2) 02/12/2014 Advance Directive 02/12/2019 Influenza (Flu) vaccine (1 of 1 - Influenza standard 05/23/2022 series) Care Teams Finishing Operator Relationship Specialty Start Date End Date Chantal Wallis MD PCP - General 08/14/10 Rosi BAIRES [address] [place] [address]
--- OUTSIDE RECORDS SUMMARY | 2022-05-09 15:18 | XMS_ITS | Encounter Summary ---
:1965 Author Organization [facility] [place] [address] Care Team Providers Name Role Phone Chantal Wallis MD Primary Care Provider Encounter Details Date Type Department Care Team Description 05/20/2017 Refill Dermatology at [facility] Margarette Mena, NEUROSCIENTIST [address] [facility] [place] [address] Social History Tobacco Use Types Packs/Day Years Used Date Never Smoker Smokeless Tobacco: Never Used Alcohol Use Standard Drinks/Week Comments Not Asked 0 (1 standard drink = 0.6 oz pure alcoho l) Sex Assigned at Date Recorded Not on file documented as of this encounter Plan of Treatment Not on filedocumented as of this encounter Visit Diagnoses Not on filedocumented in this encounter Care Teams Flask Fitter Relationship Specialty Start Date End Date Chantal Wallis MD PCP - General 08/14/10 Rosi BAIRES [address] [place], [place] [id number] documented as of this encounter
--- OUTSIDE RECORDS SUMMARY | 2022-05-09 15:18 | XMS_ITS | Encounter Summary ---
:1965 Author Organization [facility] [place] [address] Care Team Providers Name Role Phone Chantal Wallis MD Primary Care Provider Reason for Visit Reason Onset Date Comments Results 04/15/2011 Encounter Details Date Type Department Care Team Description 04/15/2011 Telephone Allergy at [facility] Esperanza Oakley MD Results [facility] [address] [facility] [place] [address] ALLERGY AND IMMUNOLOGY [phone] [place], [place] [address] (Wo rk) Social History Tobacco Use Types Packs/Day Years Used Date Never Smoker Smokeless Tobacco: Never Used Alcohol Use Standard Drinks/Week Comments Not Asked 0 (1 standard drink = 0.6 oz pure alcoho l) Sex Assigned at Date Recorded Not on file documented as of this encounter Miscellaneous Notes Telephone Encounter - Esperanza Oakley MD - 04/15/2011 9:37 AM EDT pt was notified of test results: CBC, and ESR were WNL.Thyroperoxidase abs are elevated,this suggests that her urticaria may be autoimmune in origin. RAST results to tree nuts all neg. Consider food challenge-she will let me know if she wishes to proceed. documented in this encounter Plan of Treatment Not on filedocumented as of this encounter Visit Diagnoses Not on filedocumented in this encounter Care Teams Dosier Operator Relationship Specialty Start Date End Date Chantal Wallis MD PCP - General 08/14/[address] [place] [address] documented as of this encounter
--- OUTSIDE RECORDS SUMMARY | 2022-05-09 15:18 | XMS_ITS | Encounter Summary ---
:1965 Author Organization [facility] Address [address] [place] [address] Care Team Providers Name Role Phone Unknown, Provider Primary Care Provider Encounter Details Date Type Department Care Team Description 11/30/2021 Lab Requisition [facility] Outr Resulting Lab, Pathology & Laboratory Provider [facility] [address] [place] [address] Social History Tobacco Use Types Packs/Day Years Used Date Never Assessed Sex Assigned at Date Recorded Not on file documented as of this encounter Plan of Treatment Not on filedocumented as of this encounter Procedures Procedure Name Priority Date/Time Associated Diagnosis Comme nts HEPATITIS C AB W Routine 11/30/2021 15:44 Results for this REFLEX TO HCV RNA EST procedure are in BY PCR the results section. documented in this encounter Results HEPATITIS C AB W REFLEX TO HCV RNA BY PCR (11/30/2021 15:44 EST) Pathologist Sig nature Hep C Antibody Negative Negative [facility] Specimen Blood - Venous blood (substance) Performing Organization Address City/State/ZIP Code Phon e Number [facility] [address] [place] [address] SERVICES documented in this encounter Visit Diagnoses Not on filedocumented in this encounter Care Teams Supervisor Bit And Shank Department Relationship Specialty Start Date End Date Unknown, Provider, PCP - General 08/14/15 documented as of this encounter
--- OUTSIDE RECORDS SUMMARY | 2022-05-09 15:18 | XMS_ITS | Encounter Summary ---
:1965 Author Organization [facility] Address [address] [place] [address] Care Team Providers Name Role Phone Chantal Wallis MD Primary Care Provider Encounter Details Date Type Department Care Team Description 08/20/2010 Office Visit Dermatology Louie Lopez MD [address] DERMATOLOGY [place], [place] [address] [place] [address] [phone] (Wo rk) Social History Tobacco Use Types Packs/Day Years Used Date Never Assessed Sex Assigned at Date Recorded Not on file documented as of this encounter Plan of Treatment Not on filedocumented as of this encounter Visit Diagnoses Not on filedocumented in this encounter Care Teams Marketing Database Analyst Relationship Specialty Start Date End Date Chantal Wallis MD PCP - General 08/14/10 Rosi BAIRES [address] [place], [place] [id number] documented as of this encounter
--- OUTSIDE RECORDS SUMMARY | 2022-05-09 15:18 | XMS_ITS | Encounter Summary ---
:1965 Author Organization [facility] Address [address] [place] [address] Care Team Providers Name Role Phone Unavailable Primary Care Provider Unavailable Encounter Details Date Type Department Care Team Description 08/30/2010 Results Only [facility] Chantal Peterson MD Laboratory Services - [address] [address] [place] [address] [phone] Social History Tobacco Use Types Packs/Day Years Used Date Never Assessed Sex Assigned at Date Recorded Not on file documented as of this encounter Plan of Treatment Not on filedocumented as of this encounter Procedures Procedure Name Priority Date/Time Associated Diagnosis Comme nts CYTOPATHOLOGY Routine 08/30/2010 0:00 EST Results for this procedure are i n the results section . documented in this encounter Results CYTOPATHOLOGY (08/30/2010 0:00 EST) Pathology Report: CYTOPATHOLOGY REPORT ? [facility] ? LAB Reports generated via [employer] interface contain original data; ? however they are lacking the format of the original report. ? Caution should be taken when reading/interpreting unformatted reports. ? Name: ? CRISS MONROE AE ? Accession #: ? [id number] ? : ? 1965 (Age: 45) ??F ?Collect Date: ? 08/30/2010 ? Location: ? [facility] ? Receive Date: ? 09/03/2010 ? Provider: ?CHANTAL PETERSON MD ? Copy to: ? Specimen/Source: ? Pap Test, Cervix/Endocervix, ThinPrep Imaging System ? with manual evaluation ? Last Menstrual Period: ? 12/01/10 ? SPECIMEN ADEQUACY ? Satisfactory for Eval uation ? - transformation zone compon ent present ? - scant squamous epithelial component ? GENERAL CATEGORIZATION ? Negative for Intraepi thelial Lesion or Malignancy ? Document reviewed and electr onically signed by: ? Lynan Benedict, CT(ASCP) ? Report Date: ??12/16/ 2010 12:56 ? End of Report ? Specimen Performing Organization Address City/State/ZIP Code Phon e Number [facility] [address] [place] [address] SERVICES [facility] [address] [place] [address] documented in this encounter Visit Diagnoses Not on filedocumented in this encounter
--- OUTSIDE RECORDS SUMMARY | 2022-05-09 15:18 | XMS_ITS | Encounter Summary ---
:1965 Author Organization [facility] Address [address] [place] [address] Care Team Providers Name Role Phone Unknown, Provider Primary Care Provider Encounter Details Date Type Department Care Team Description 04/13/2018 Results Only [facility] Chantal Nguyen MD [phone] [address] [place] [address] (Wo rk) Social History Tobacco Use Types Packs/Day Years Used Date Never Assessed Sex Assigned at Date Recorded Not on file documented as of this encounter Plan of Treatment Not on filedocumented as of this encounter Procedures Procedure Name Priority Date/Time Associated Diagnosis Comme nts PAP TEST- RESULT Routine 04/13/2018 0:00 EDT Resu lts for this ONLY procedure are i n the results section. documented in this encounter Results PAP TEST- RESULT ONLY (04/13/2018 0:00 EDT) Pathology Report: CYTOPATHOLOGY REPORT [facility] Reports generated via electronic interface contain shelley ginal data; SERVICES however they are lacking the format of the original re port. Caution should be taken when reading/interpreting unfo rmatted reports. Name: ? CRISS MONROE AE ? Accession #: ? [id number] ? : ? 1965 (Age: [age]) ??F ?Collect Date: ? 04/13/2018 ? Location: ? [facility] ? Receive Date: ? 04/14/20 18 ? Provider: CHANTAL PETERSON MD Copy to: ? Final Report SPECIMEN ADEQUACY ? Satisfactory for Evaluation - assessment of transformation zone component not appl icable ( e.g. atrophy, vaginal sample, hysterectomy) GENERAL CATEGORIZATION ? Negative for Intraepithelial Lesion or Malignan cy ?? Last Menstrual Period: 2017 Other: Additional clinical information: Z00.00 Z12.4 Z 11.51 Specimen/Source: ??Pap Test, Cervix, ThinPrep Imaging System with manual evaluation Document reviewed and electronically signed by: ? Yanni Ramos, CT(ASCP) ? Report ??Date: 04/24/2018 13:57 HPV with Pap Test ? Date Ordered: ? 04/24/2018 ? Status: ?? S igned Out ?Date Complete: ? 04/27/2018 ? By: ??Sys tem Interface ? Date Reported: ? 04/27/2018 ? Interpretation RESULT: Negative for HPV. No E6 or E7 mRNA is detected from HPV types 16,18,31,3 3,35, 39,45,51,52,56,58,59,66, and 68 by exterior door installer media savanah amplification. Comments Document reviewed and electronically signed by: ? System Interface ? Report date: 04/27/2018 By the signature above, the attending physician certif ies that he/she has personally conducted a gross and/or microscopic examin ation of the described specimens and rendered or confirmed the above diagnosi s. End of Report Specimen Performing Organization Address City/State/ZIP Code Phon e Number [facility] [address] [place] [id number] SERVICES documented in this encounter Visit Diagnoses Not on filedocumented in this encounter Care Teams Therapy Teacher Relationship Specialty Start Date End Date Unknown, Provider, PCP - General 08/14/15 documented as of this encounter
[2022-05-09 19:35] LABS: Hemoglobin A1C 5.7 % (<5.7)
[2022-05-09 19:37] LABS: TSH 0.49 uIU/mL (0.36-3.74)
== END 2022-05-09 15:12 | disposition home or self-care (01) ==
LOC: NCHCN 15:11
PROVIDERS: PCP Family Medicine; Visit Provider Family Medicine
DX: E03.9 Hypothyroidism, unspecified (principal); R73.03 Prediabetes
CPT/HCPCS: 83036; 84443

== ENCOUNTER → 2022-05-31 00:32 | Outpatient (CLI) | payer BC, SELFPAY ==
--- OUTSIDE RECORDS SUMMARY | 2022-05-31 00:48 | XMS_ITS | Clinical Summary ---
:1965 Author Organization [facility] Address [address] [place] [address] Care Team Providers Name Role Phone Unknown, Provider Primary Care Provider Social History Tobacco Use Types Packs/Day Years Used Date Never Assessed Sex Assigned at Date Recorded Not on file Plan of Treatment Health Maintenance Due Date Last Done Comments COVID-19 Vaccine (1) 02/12/1969 Hepatitis C Screen Completed 11/30/2021 Insurance Payer Benefit Plan / Subscriber ID Effective Dates Phone Addre ss Type Group [facility] [id number] 2018-Present [address] [facility] [place] [address] Care Teams Warehouse Order Selector Relationship Specialty Start Date End Date Unknown, Provider, PCP - General 08/14/15 (work)
--- OUTSIDE RECORDS SUMMARY | 2022-05-31 00:48 | XMS_ITS | Encounter Summary ---
:1965 Author Organization [facility] [place] [address] Care Team Providers Name Role Phone Chantal Wallis MD Primary Care Provider Reason for Visit Reason Comments Angioedema Encounter Details Date Type Department Care Team Description 04/08/2011 Office Visit Allergy at [facility] Esperanza Oakley, Urticaria (Primary Dx) [place] [address] ALLERGY AND [phone] IMMUNOLOGY [place], [place] [address] Social History Tobacco Use Types [...] Oakley MD HEMATOLOGY ORDERABLES Performing Organization Address City/[facility] [address]/[facility] Code Phon e Number [address] [facility] Thyroglobulin Antibody (04/08/2011 11:47 AM EDT) [...] Oakley MD CHEMISTRY ORDERABLES Performing Organization Address City/[facility] [address]/ZIP Code Phon e Number [address] [facility] (ABNORMAL) Thyroid peroxidase antibody (04/08/2011 11:47 AM EDT) athologist Signature Thyroperox Ab 336 (H) <=34 IU/mL [facility] Specimen Anatomical Collection Method Collection Time Receive d Time (Source) Location / / Volume Laterality Blood specimen 04/08/2011 11:47 1 2:28 (specimen) AM EDT PM EDT Esperanza Oakley MD IMMUNOLOGY ORDERABLES Performing Organization Address City/State/ZIP Code Phon e Number [address] [facility] Sedimentation rate (04/08/2011 11:47 AM EDT) athologist Signature Sed Rate 12 0 - 20 CERNER mm/hr [facility] Specimen Anatomical Collection Method Collection Time Receive d Time (Source) Location / / Volume Laterality Blood specimen 04/08/2011 11:47 1 (specimen) AM EDT 11:57 AM EDT Esperanza Oakley MD HEMATOLOGY ORDERABLES Performing Organization Address City/State/ZIP Code Phon e Number [address] [facility] CBC (with Diff) (04/08/2011 11:47 AM EDT) [...] MPV 10.1 9.0 - 12.0 CERNER fL [facility] Specimen Anatomical Collection Method Collection Time Receive d Time (Source) Location / / Volume Laterality Blood specimen 04/08/2011 11:47 1 (specimen) AM EDT 11:57 AM EDT Esperanza Oakley MD HEMATOLOGY ORDERABLES Performing Organization Address City/State/ZIP Code Phon e Number [address] [facility] [place] IgE (04/08/2011 11:47 AM EDT) P athologist Signature [place] IgE <0.35 kU/L [facility] Comment: Class 0 (Negative <0.35) Test Performed by: [facility] Dpt of Lab Med and Pathology [address] [place] [address] Director Of Direct Marketing: Remberto loomis III, M.D. Specimen Anatomical Collection Method Collection Time Receive d Time (Source) Location / / Volume Laterality Blood specimen 04/08/2011 11:47 1 1:10 (specimen) AM EDT PM EDT Esperanza Oakley MD IMMUNOLOGY ORDERABLES Performing Organization Address City/[facility] [address]/ZIP Code Phon e Number [address] [facility] [place] IgE (04/08/2011 11:47 AM EDT) P athologist Signature [place] IgE <0.35 kU/L [facility] Comment: Class 0 (Negative <0.35) Test Performed by: [facility] Dpt of Lab Med and Pathology [address] [place] [address] Director Of Direct Marketing: Remberto loomis III, M.D. Specimen Anatomical Collection Method Collection Time Receive d Time (Source) Location / / Volume Laterality Blood specimen 04/08/2011 11:47 1 1:10 (specimen) AM EDT PM EDT Esperanza Oakley MD IMMUNOLOGY ORDERABLES Performing Organization Address City/State/ZIP Code Phon e Number [address] CERNER MILLENNIUM [place] IgE (04/08/2011 11:47 AM EDT) P athologist Signature [place] IgE <0.35 kU/L CERNER MILLENNIUM Comment: Class 0 (Negative <0.35) Test Performed by: [facility] Dpt of Lab Med and Pathology [address] [place], [place] [address] Director Of Direct Marketing: Remberto loomis III, M.D. Specimen Anatomical Collection Method Collection Time Receive d Time (Source) Location / / Volume Laterality Blood specimen 04/08/2011 11:47 1 1:10 (specimen) AM EDT PM EDT Esperanza Oakley MD IMMUNOLOGY ORDERABLES Performing Organization Address City/[facility] [address]/[facility] Phon e Number [address] CERNER MILLENNIUM [place] IgE (04/08/2011 11:47 AM EDT) athologist Signature [place] IgE <0.35 kU/L CERNER MILLENNIUM Comment: Class 0 (Negative <0.35) Test Performed by: [facility] Dpt of Lab Med and Pathology [address] [place] [address] Director Of Direct Marketing: Remberto loomis III, M.D. Specimen Anatomical Collection Method Collection Time Receive d Time (Source) Location / / Volume Laterality Blood specimen 04/08/2011 11:47 1 1:10 (specimen) AM EDT PM EDT Esperanza Oakley MD IMMUNOLOGY ORDERABLES Performing Organization Address City/[facility] [address]/[facility] Code Phon e Number [address] CERNER MILLENNIUM [place] IgE (04/08/2011 11:47 AM EDT) P athologist Signature [place] IgE <0.35 kU/L CERNER MILLENNIUM Comment: Class 0 (Negative <0.35) Test Performed by: [facility] Dpt of Lab Med and Pathology [address] [place], [place] [address] Director Of Direct Marketing: Remberto loomis III, M.D. Specimen Anatomical Collection Method Collection Time Receive d Time (Source) Location / / Volume Laterality Blood specimen 04/08/2011 11:47 1 1:10 (specimen) AM EDT PM EDT Esperanza Oakley MD IMMUNOLOGY ORDERABLES Performing Organization Address City/[facility] [address]/ZIP Code Phon e Number [place] [id number] [facility] CERNER MILLENNIUM [place] IgE (04/08/2011 11:47 AM EDT) athologist Signature [place] IgE <0.35 kU/L CERNER MILLENNIUM Comment: Class 0 (Negative <0.35) Test Performed by: [facility] Dpt of Lab Med and Pathology [address] [place] [address] Director Of Direct Marketing: Remberto loomis III, M.D. Specimen Anatomical Collection Method Collection Time Receive d Time (Source) Location / / Volume Laterality Blood specimen 04/08/2011 11:47 1 1:10 (specimen) AM EDT PM EDT Esperanza Oakley MD IMMUNOLOGY ORDERABLES Performing Organization Address City/[facility] [address]/ZIP Code Phon e Number [address] C[facility]ER MILLENNIUM documented in this encounter Visit Diagnoses Diagnosis Urticaria - Primary Urticaria, unspecified documented in this encounter Care Teams Airplane Refueler Relationship Specialty Start Date End Date Chantal Wallis MD PCP - General 08/14/10 Rosi BAIRES [address] [place] [address] documented as of this encounter
--- OUTSIDE RECORDS SUMMARY | 2022-05-31 00:48 | XMS_ITS | Encounter Summary ---
:1965 Author Organization [facility] Address [address] [place] [address] Care Team Providers Name Role Phone Unknown, Provider Primary Care Provider Encounter Details Date Type Department Care Team Description 04/13/2018 Results Only [facility]- Chantal Nguyen MD [phone] [address] [place] [address] (Wo rk) Social History Tobacco [...] (04/13/2018 0:00 EDT) Pathology Report: CYTOPATHOLOGY REPORT [facility] Reports generated via electronic interface contain shelley ginal data; SERVICES however they are lacking the format of the original re port. Caution should be taken when reading/interpreting unfo rmatted reports. Name: ? CRISS MONROE AE ? Accession #: ? [id number] ? : ? 1965 (Age: [age]) [...] types 16,18,31,3 3,35, 39,45,51,52,56,58,59,66, and 68 by customer service engineer media savanah amplification. Comments Document reviewed and electronically signed by: ? System Interface ? Report date: 04/27/2018 By the signature above, the attending physician certif ies that he/she has personally conducted a gross and/or microscopic examin ation of the described specimens and rendered or confirmed the above diagnosi s. End of Report Specimen Performing Organization Address City/State/ZIP Code Phon e Number [facility] [address] [place] [address] SERVICES documented in this encounter Visit Diagnoses Not on filedocumented in this encounter Care Teams Mechanical Handyman Relationship Specialty Start Date End Date Unknown, Provider, PCP - General 08/14/15 documented as of this encounter
--- OUTSIDE RECORDS SUMMARY | 2022-05-31 00:48 | XMS_ITS | Encounter Summary ---
:1965 Author Organization [facility] Address [address] [place] [address] Care Team Providers Name Role Phone Unavailable Primary Care Provider Unavailable Encounter Details Date Type Department Care Team Description 09/09/2013 Results Only [facility] Unknown, Fausto alves MD Laboratory Services - [facility] [address] [place] [address] Social History Tobacco Use Types [...] MONROE AE ? Accession #: ? [id number] ? : ? 1965 (Age: 48) ??F [...] types 16,18,31,3 3,35, 39,45,51,52,56,58,59,66, and 67 by coal trimmer media savanah amplification. Comments Document reviewed and electronically signed by: ? System Interface ? Report date: 09/20/2013 By the signature above, the attending physician certif ies that he/she has personally conducted a gross and/or microscopic examin ation of the described specimens and rendered or confirmed the above diagnosi s. End of Report Specimen Performing Organization Address City/State/ZIP Code Phon e Number [facility] [address] [place] [address] SERVICES [facility] [address] [place] [address] documented in this encounter Visit Diagnoses Not on filedocumented in this encounter
--- OUTSIDE RECORDS SUMMARY | 2022-05-31 00:48 | XMS_ITS | Encounter Summary ---
:1965 Author Organization [facility] Address [address] [place] [address] Care Team Providers Name Role Phone Unknown, Provider Primary Care Provider Encounter Details Date Type Department Care Team Description 11/30/2021 Lab Requisition [facility] Outr Resulting Lab, Pathology & Laboratory Provider [facility] [address] [place] [address] Social History Tobacco Use Types Packs/Day Years [...] Sig nature Hep C Antibody Negative Negative [facility] ORY SERVICES Specimen Blood - Venous blood (substance) Performing Organization Address City/State/ZIP Code Phon e Number [facility] [address] [place] [address] SERVICES documented in this encounter Visit Diagnoses Not on filedocumented in this encounter Care Teams Assembler Fishing Floats Relationship Specialty Start Date End Date Unknown, Provider, PCP - General 08/14/15 documented as of this encounter
--- OUTSIDE RECORDS SUMMARY | 2022-05-31 00:48 | XMS_ITS | Encounter Summary ---
:1965 Author Organization [facility] [place] [address] Care Team Providers Name Role Phone Chantal Wallis MD Primary Care Provider Encounter Details Date Type Department Care Team Description 05/20/2017 Refill Dermatology at [facility] Margarette Mena, READING INTERVENTION TEACHER [address] [place] [address] Social History Tobacco Use [...] filedocumented in this encounter Care Teams Supervisor Continuous Weld Pipe Mill Relationship Specialty Start Date End Date Chantal Wallis MD PCP - General 08/14/10 Rosi BAIRES [address] [place], [place] [phone] documented as of this encounter
--- OUTSIDE RECORDS SUMMARY | 2022-05-31 00:48 | XMS_ITS | Encounter Summary ---
:1965 Author Organization [facility] [place] [address] Care Team Providers Name Role Phone Chantal Wallis MD Primary Care Provider Reason for Visit Reason Comments Skin Check Consultation (Routine) - Specialty Diagnoses / Procedures Referred By Contact Refer red To Contact Dermatology Diagnoses Other injury of unspecified body region Blisters Chantal Wallis MD Hammer, Charles J, MD Procedures Blisters [address] [facility] [address] [place], [place] DERMATOLOGY [address] [place] [address] Fax: Referral ID Status Reason Start Date Expiration Date Visits V isits Requested Authorized [id number] 04/16/2017 04/16/2018 1 1 Encounter Details Date Type Department Care Team Description 05/20/2017 Office Visit Dermatology at [facility], Lichen planus; Marcial KRAMER [place]; [address] Viral warts, unspecified type; [place] DERMATOLOGY Mucoid cyst of joint [place], [place] [phone] Social History Tobacco Use Types Packs/Day Years [...] joint documented in this encounter Care Teams Metaphysicist Relationship Specialty Start Date End Date Chantal Wallis MD PCP - General 08/14/10 Rosi BAIRES [address] [place] [id number] documented as of this encounter
--- OUTSIDE RECORDS SUMMARY | 2022-05-31 00:48 | XMS_ITS | Encounter Summary ---
:1965 Author Organization [facility] [address] Care Team Providers Name Role Phone Chantal Wallis MD Primary Care Provider Reason for Visit Reason Comments Allergies Consultation (Routine) - Specialty Diagnoses / Procedures Referred By Contact Refer red To Contact Allergy Diagnoses URTICARIA, CHRONIC Chantal Wallis MD [facility] [place] [facility] 6m [address] [place] [id number] Referral ID Status Reason Start Date Expiration Date Visits V isits Requested Authorized [id number] Consult, 03/20/2018 03/20/2019 6 6 [facility] Encounter Details Date Type Department Care Team Description 06/08/2018 Office Visit Allergy at [facility] Dipika Booth MD Chronic urticaria; [facility] Ang ioedema, initial encounter; Drive Mild intermittent asthma without complic ation; [place], [place] ALLERGY DEPT Food allergy [id number] [place] [address] Social History Tobacco Use Types Packs/Day Years [...] Mass Index 39.14 06/08/2018 3:01 PM EDT documented in this encounter Patient Instructions Patient InstructionsDipika Booth MD - 06/08/2018 3:00 PM EDT Chronic urticaria (hives) and angioedema (swelling): this is typically not due to environmental trigger but dysregulation of immune system, thought to be autoimmune in nature. It may come and go throughout life. It is more common in people with other autoimmune diseases, like hypothyroidism. Allergy testing is not helpful because the trigger is not external. Changing your diet is unlikely to help thehives or prevent them. If they flare up again, I recommend taking: - cetirizine (zyrtec) 10mg twice a day - if still having symptoms after 1 week, add ranitidine (zantac) 150mg twice a day - call if this combination not working - can try other meds. I recommend going 3 months without hives before trying to taper medications. Taper medications as follows: - reduce ranitidine(zantac) to once a day - if no hives after one week, stop ranitidine (zantac) - if no hives after one week, reduce cetirizine (zyrtec) to once a day - if no hives after one week, stop cetirizine (zyrtec) If hives return, go back to last combination of medications that controlled symptoms and try again in 3 months. I think you can try almonds at home, because it is unlikely you are allergic to almonds. How to do afood challenge at home: - make sure you have someone else present to help out in case of a reaction - before eating the food, place it on your tongue for several seconds and see if you develop any symptoms - if no symptoms after touching your tongue, eat a pea-sized amount of the food, then wait about 20 minutes - if no symptoms, eat a thumb-sized amount and wait 20 minutes - if no symptoms, eat a golf ball sized amount and wait 20 minutes - if no symptoms, eat the rest of a normal serving of the food For your reactive airway, it is probably OK to try stopping singulair since you only had one episodeof wheezing. Some people only need to be on asthma medications intermittently, around triggers. Talkto your primary care doctor to make sure he/she agrees. Return as needed documented in this encounter Progress Notes Stacey Jackson MD - 06/08/2018 3:00 PM EDT CC: chronic urticaria HPI: Swetha Herron is a 53 y.o. female with a PMH of hypertension, prediabetes, and hypothyroidismpresenting for evaluation of chronic urticaria at the request of Chantal Wallis. She's had four episodes of chronic urticaria - ~1992 - was put on a steroid pack, lasted maybe a few weeks - ~2001 - resolved on own, lasted maybe a few weeks - 2010 - episode ended in angioedema (upper lip and face); hard and painful hives; about one month in duration. Only episode of angioedema so far Her most recent episode started in November 2017 following wearing new jeans and ended March 2018. She was already on Zyrtec at the time (has taken it daily since 2010) when this happened. She then added on Flor once daily and Ranitidine 150mg once daily, which controlled her symptoms within a week. She stopped the Zyrtec about two weeks ago, Flor about one week ago, and Ranitidine two days ago prior to her appointment. She has been itchy but has had NO hives since stopping the medications.. The hives typically appear first thing in the morning and last 12 hours or less. They are very pruritic. They never leave any bruising or skin changes. They never burn. They happen all over the body except for the face. Tight fitting clothing and areas of friction made them worse. She was last evaluated for her chronic urticaria back in 2010. She had tree nut testing at that timedue to having had hives around exposure to almond flour; IgE and skin testing was negative at that time. She did not do a challenge test and she had avoided tree nuts since. She does have chronic sinusitis (evaluation was performed for loss of smell in 2016). She was treated with steroids and antibiotics. Recent skin testing (2016) was positive to dust mites, tree pollens,and molds. Her symptoms are well- controlled right now on Flonase, montelukast, and Zyrtec. She uses dust mite covers at homes and also works on reducing other environmental triggers. She has no formal diagnosis of asthma. She had virally-induced reactive airway disease in 2014 that caused prolonged wheezing; this resolved on inhaled steroids. Her PFTs were normal. She has not had trouble with wheezing since. ROS (positives in bold): Constitutional - fevers, chills, body aches, weight loss or gain, fatigue Cardiovascular - chest pain, palpitations, angina Respiratory - SOB, LÓPEZ, wheeze, cough, sputum production HEENT - itchy/red/watry eyes, diffculty swallowing, hearing changes, nasal congestion or postnasal drip, sneezing Gastrointestinal - abdominal pain, nausea, vomiting, GERD, constipation, diarrhea Musculoskeletal - pain at rest or with movement, joint swelling Neurological - headaches, facial pain/pressure Heme/Lymph - bleeding, lymph node swelling, night sweats Eyes - visual changes, blurriness or visual loss Integument - lesions, lumps or nodules noted, rashes, hives (now resolved) Patient Active Problem List Diagnosis Code ??? Urticaria L50.9 ??? Lichen planus L43.9 ??? Acrochordon L91.8 ??? Mucoid cyst of joint M67.40 ??? Hypothyroidism E03.9 ??? Essential hypertension I10 ??? Prediabetes R73.03 ??? Other chronic sinusitis J32.8 Past Surgical History: Procedure Laterality Date ??? COLONOSCOPY ??? DILATION AND CURETTAGE OF UTERUS ??? TONSILLECTOMY ??? levothyroxine (SYNTHROID) 200 mcg Tablet ??? omeprazole 20 mg Tablet, Delayed Release (E.C.) ??? fluticasone (FLONASE) 50 mcg/actuation [place], Suspension ??? montelukast (SINGULAIR) 10 mg Tablet ??? clobetasol-emollient (TEMOVATE E) 0.05 % Cream ??? lisinopril (PRINIVIL;ZESTRIL) 5 mg tablet ??? ranitidine (ZANTAC) 300 mg Tablet ??? cetirizine (ZYRTEC) 10 mg tablet ??? multivitamin (DAILY MULTIPLE) tablet ??? Glucosamine Sulfate 500 mg Cap ??? medroxyPROGESTERone (PROVERA) 10 mg tablet Allergies Allergen Reactions ??? Bacitracin CIS - Localized Reaction ??? Gramicidin D CIS - Localized Reaction ??? Neomycin Sulfate CIS - Localized Reaction ??? Polymyxin B CIS - Localized Reaction Family History Problem Relation Age of Onset ??? Thyroid Disease Mother ??? Diabetes Mother ??? Heart Disease Father ??? Allergies Father Penicillin, sulfa Social History Social History ??? Marital status: Spouse name: N/A ??? Number of children: N/A ??? Years of education: N/A Occupational History ??? Not on file. Social History Main Topics ??? Smoking status: Never Smoker ??? Smokeless tobacco: Never Used ??? Alcohol use Not on file ??? Drug use: Not on file ??? Sexual activity: Not on file Other Topics Concern ??? 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 Patient is not exposed to chemicals or hazardous fumes at work. Lives in a house with baseboard heat. There is no central a/c. There is not a woodstove. The patienthas not seen around the home. There is no known mold or mildew. The patient does not live on a farm and she is NOT exposed to farm animals at work or home. Pets: 8 cats, 4 dogs, 2 birds PHYSICAL EXAM: BP 133/79 Pulse (!) 105 Resp 18 Ht 170.2 cm (5' 7) Wt 113.4 kg (249 lb 14.4 oz) SpO2 99% BMI 39.14 kg/m2 Gen: AAOx3, no acute distress HEENT: Tympanic membranes clear, no lesions, erythema, or drainage. Conjunctiva not injected. Nasal passages show pink turbinates bilaterally. OP clear without erythema or cobblestoning. NECK: supple, no lymphadenopathy CVS: RRR, no m/r/g LUNGS: CTAB, no wheezing or rales ABD: soft, non-tender, non-distended SKIN: no rashes EXTREMITIES: warm and well-perfused, no edema ASSESSMENT AND PLAN: 53 y.o. female presenting for co-management of chronic urticaria. Her hives have resolved at this point and have not returned despite discontinuation of anti- histamines and H2 kayli recently. We discussed the thought that chronic urticaria is secondary to autoimmune dysregulation and that there is likely no single environmental or food trigger. She can hold of of restarting her anti- histamines and H2 kayli for now, but can resume them if her hives return. Additionally, we discussed that she havea very low likelihood of almond allergy given her negative skin testing and serum IgE testing. She is interested in a home challenge, which we've provided instructions for. - If hives return: - cetirizine 10mg twice daily with ranitidine 150mg twice daily - if no hives after three months on above regimen, can attempt to taper medications above (instructions provided to patient) - if hives return, go back on last combination of medications that controlled symptoms and try to taper again after three months - Home almost test per instructions - OK to try stopping Singulair given no recurrence of reactive airway Dipika Booth MD - 06/08/2018 3:00 PM EDT I have seen and examined the patient and reviewed the resident's above history and physical exam Mauro agree with the details as written. The assessment and plan were formulated in discussion with me and I agree with them as documented. Will also add: HPI: when hives first began in November, they occurred 2-3 times a week, then daily until she started BID H1 antag (zyrtec/flor) + ranitidine 150mg daily. Then hives resolved in 1 week. Cele in 2010 thought hives autoimmune and pt had elevated anti-TPO ab at that time. Still avoids TN but eating PN no problems. For chronic sinusitis, testing at ENT in 2017 positive to tree pollen, weed pollen, dog (based on myinterpretation of positive being wheal 3mm greater than negative control). They also did intradermaltesting which looks like it was positive to dust mite P, dust mite F, fusarium, rhodoturola, elm, walnut tree per their interpretatiom. Results will be scanned into the computer system. The patient reports that she was recommended to take Flonase and Singulair for her chronic sinusitis and recommendedto use dust mite covers and a dehumidifier. She was also treated with a prolonged course of antibiotics (Cipro) and prednisone and this significantly improved her sinus symptoms and she denies any major sinus symptoms right now. Main c/o is hives and figuring out what might be triggering them. A/P: 53 yo F with chronic urticaria and angioedema. Counseled this is typically not due to environmental trigger but dysregulation of immune system, thought to be autoimmune in nature. It may come and go throughout life. It is more common in people with other autoimmune diseases, like hypothyroidism. Allergy testing is not helpful because the trigger is not external. Changing diet is unlikely to helpthe hives or prevent them. If they flare up again, I recommend taking: - cetirizine (zyrtec) 10mg twice a day - if still having symptoms after 1 week, add ranitidine (zantac) 150mg twice a day - call if this combination not working - can try other meds. I recommend going 3 months without hives before trying to taper medications. Taper medications as follows: - reduce ranitidine(zantac) to once a day - if no hives after one week, stop ranitidine (zantac) - if no hives after one week, reduce cetirizine (zyrtec) to once a day - if no hives after one week, stop cetirizine (zyrtec) If hives return, go back to last combination of medications that controlled symptoms and try again in 3 months. Concern for food allergy: she had hives after eating almond flour during last episode, but the hiveswere chronic and without reliable tree nut pattern, as she avoided TN and still got hives. Testing to TN on SPT and blood all negative. I think she can try almonds at home, because it is unlikely she is allergic to almonds. How to do a food challenge at home: - make sure you have someone else present to help out in case of a reaction - before eating the food, place it on your tongue for several seconds and see if you develop any symptoms - if no symptoms after touching your tongue, eat a pea-sized amount of the food, then wait about 20 minutes - if no symptoms, eat a thumb-sized amount and wait 20 minutes - if no symptoms, eat a golf ball sized amount and wait 20 minutes - if no symptoms, eat the rest of a normal serving of the food For h/o mild intermittent asthma, pt asked if she needs to be on singulair indefinitiely. Only had one episode of viral wheeze. Informed her I felt it was probably OK to try stopping singulair given intermittent symptoms. Some people only need to be on asthma medications intermittently, around triggers (for example, may start ICS at first sign of infection, then stop when back to baseline). Recommended talk with primary care doctor who has been prescribing this. Return as needed Dipika Booth MD documented in this encounter Plan of Treatment Not on filedocumented as of this encounter Visit Diagnoses Diagnosis Chronic urticaria Other specified urticaria Angioedema, initial encounter Mild intermittent asthma without complic ation Unspecified asthma Food allergy Other adverse food reactions, not elsewh ere classified documented in this encounter Care Teams Event Sales Representative Relationship Specialty Start Date End Date Chantal Wallis MD PCP - General 08/14/10 [address] [place] [address] documented as of this encounter
--- OUTSIDE RECORDS SUMMARY | 2022-05-31 00:48 | XMS_ITS | Encounter Summary ---
:1965 Author Organization [facility] [place] [address] Care Team Providers Name Role Phone Chantal Wallis MD Primary Care Provider Reason for Visit Reason Onset Date Comments Results 04/15/2011 Encounter Details Date Type Department Care Team Description 04/15/2011 Telephone Allergy at [facility] Esperanza Oakley MD Results [facility] [place] [address] ALLERGY AND IMMUNOLOGY [phone] [place], [place] [address] (Wo rk) Social History Tobacco [...] on filedocumented in this encounter Care Teams Machine Worker Relationship Specialty Start Date End Date Chantal Wallis MD PCP - General 08/14/[address] [place] [address] documented as of this encounter
--- OUTSIDE RECORDS SUMMARY | 2022-05-31 00:48 | XMS_ITS | Encounter Summary ---
:1965 Author Organization [facility] Address [address] [place] [address] Care Team Providers Name Role Phone Unavailable Primary Care Provider Unavailable Encounter Details Date Type Department Care Team Description 08/11/[address] [facility] - Chantal Peterson MD Converted Visit Maple conversion [address] ([place]) [address] [facility] [address] [place], [place] [id number] [place] [phone] (Wo rk) Social History Tobacco Use Types Packs/Day Years Used Date Never Assessed Sex Assigned at Date Recorded Not on file documented as of this encounter Plan of Treatment Not on filedocumented as of this encounter Procedures Procedure Name Priority Date/Time Associated Diagnosis Comme nts CYTOPATHOLOGY Routine 08/11/2008 0:00 EST Results for this procedure are i n the results section . documented in this encounter Results CYTOPATHOLOGY (08/11/2008 0:00 EST) Pathology Report: CYTOPATHOLOGY REPORT ? HURST ALL EN ? LAB Reports generated via [employer] interface contain original data; ? however they are lacking the format of the original report. ? Caution should be taken when reading/interpreting unformatted reports. ? Name: ? CRISS MONROE K AE ? Accession #: ? [id number] ? : ? 1965 (Age: 43) ??F ?Collect Date: ? 08/11/2008 ? Location: ? [facility] ? Receive Date: ? 08/12/2008 ? Provider: ?CHANTAL PETERSON MD ? Copy to: ? Specimen/Source: ? Pap Test, Cervix/Endocervix, ThinPrep Imaging System ? with manual evaluation ? Last Menstrual Period: ? 11/09/08 ? Other: ? HPVA - HPV testing requested if ASC-US on the current ThinPrep Pap test. ? SPECIMEN ADEQUACY ? Satisfactory for Eval uation ? - transformation zone compon ent present ? GENERAL CATEGORIZATION ? Negative for Intraepi thelial Lesion or Malignancy ? Document reviewed and electr onically signed by: ? Yanni [place], [place]( CP) ? Report Date: ??11/24/ 2008 13:06 ? End of Report ? Specimen Performing Organization Address City/State/[facility] Code Phon e Number [facility] [address] [place] [address] SERVICES [facility] [address] [place] [address] documented in this encounter Visit Diagnoses Not on filedocumented in this encounter
--- OUTSIDE RECORDS SUMMARY | 2022-05-31 00:48 | XMS_ITS | Encounter Summary ---
:1965 Author Organization [facility] Address [address] [place] [address] Care Team Providers Name Role Phone Unavailable Primary Care Provider Unavailable Encounter Details Date Type Department Care Team Description 05/26/2003 Results Only [facility] - Chantal Avina MD conversion [address] [facility] [address] [place] [phone] (Wo rk) Social History Tobacco Use Types [...] ? CRISS MONROE ? Accession #: ? [id number] : ? 1965 (Age: 38) ??F ?Collect [...] Organization Address City/State/ZIP Code Phon e Number [facility] [address] [place] [address] SERVICES [facility] [address] [place] [address] documented in this encounter Visit Diagnoses Not on filedocumented in this encounter
--- OUTSIDE RECORDS SUMMARY | 2022-05-31 00:48 | XMS_ITS | Encounter Summary ---
:[address] [facility] Address [address] [place] [address] Care Team Providers Name Role Phone Unknown, Provider Primary Care Provider Encounter Details Date Type Department Care Team Description 11/30/2021 Lab Requisition [facility] Outr Resulting Lab, Pathology & Laboratory Provider [facility] [address] [place] [address] Social History Tobacco Use Types [...] HIV 1 and 2 NegativeComment: If Negative [facility] Antibody/p24 acute HIV-1 LABORATORY Antigen, 4th infection is SERVICES Generation suspected in a high risk patient, submit plasma specimen for HIV-1 RNA quantitation test. Specimen Blood - Venous blood (substance) Narrative [facility] SERVICES - 12/03/2021 13:29 EDT Fourth Generation assay performed on the Siemens Centaur XPT. Performing Organization Address City/State/ZIP Code Phon e Number [facility] [address] [place] [address] SERVICES documented in this encounter Visit Diagnoses Not on filedocumented in this encounter Care Teams Radio Technician Relationship Specialty Start Date End Date Unknown, Provider, PCP - General 08/14/15 documented as of this encounter
--- OUTSIDE RECORDS SUMMARY | 2022-05-31 00:48 | XMS_ITS | Clinical Summary ---
:1965 Author Organization [facility] [place] [address] Care Team Providers Name Role Phone Chantal [...] 1 spray daily. 0 Active 50 mcg/actuation [place], Suspension montelukast (SINGULAIR) Take 10 mg by [...] - Influenza standard 05/23/2022 series) Care Teams Customer Service Teller Relationship Specialty Start Date End Date Chantal Wallis MD PCP - General 08/14/10 [address] [place] [address]
--- OUTSIDE RECORDS SUMMARY | 2022-05-31 00:48 | XMS_ITS | Encounter Summary ---
:1965 Author Organization [facility] Address [address] [place] [address] Care Team Providers Name Role Phone Chantal Wallis MD Primary Care Provider Encounter Details Date Type Department Care Team Description 08/20/2010 Office Visit Dermatology Louie Lopez MD [address] DERMATOLOGY [place], [place] [address] [place] [address] [phone] (Wo rk) Social History Tobacco Use Types Packs/Day Years Used Date Never Assessed Sex Assigned at Date Recorded Not on file documented as of this encounter Plan of Treatment Not on filedocumented as of this encounter Visit Diagnoses Not on filedocumented in this encounter Care Teams Safety Lamp Keeper Relationship Specialty Start Date End Date Chantal Wallis MD PCP - General 08/14/10 [address] [place], [place] [id number] documented as of this encounter
--- OUTSIDE RECORDS SUMMARY | 2022-05-31 00:48 | XMS_ITS | Encounter Summary ---
:1965 Author Organization [facility] Address [address] [place] [address] Care Team Providers Name Role Phone Unavailable Primary Care Provider Unavailable Encounter Details Date Type Department Care Team Description 08/30/2010 Results Only [facility] Chantal Peterson MD Laboratory Services - [address] [address] [place] [address] [phone] Social History Tobacco Use Types Packs/Day Years [...] ALL EN ? LAB Reports generated via [employer] interface contain original data; ? however they are lacking the format of the original report. ? Caution should be taken when reading/interpreting unformatted reports. ? Name: ? CRISS MONROE AE ? Accession #: ? [id number] ? : ? 1965 (Age: 45) ??F [...] e Number [facility] [address] [place] [address] SERVICES [facility] [address] [place] [address] documented in this encounter Visit Diagnoses Not on filedocumented in this encounter
--- OUTSIDE RECORDS SUMMARY | 2022-05-31 00:48 | XMS_ITS | Encounter Summary ---
:1965 Author Organization [facility] Address [address] [place] [address] Care Team Providers Name Role Phone Unavailable Primary Care Provider Unavailable Encounter Details Date Type Department Care Team Description 04/02/2002 Results Only [facility] - Chantal Avina MD conversion [address] [facility] [address] [place] [phone] (Wo rk) Social History Tobacco Use Types [...] ? CRISS MONROE ? Accession #: ? [id number] : ? 1965 (Age: 37) ??F ?Collect Date: ? 03/22 Location: ? [facility] ? Receive Date : ? 04/06/2002 Provider: ?CHANTAL PETERSON MD Copy to: ? Specimen/Source: ?ThinPrep Pap Test, Cervix/ Endocervix Last Menstrual Period: ? 03/21/02 Other: ? [facility] - HPV testing requested if ASCUS/LILIBETH on the [facility] ent ThinPrep Pap test. ? SPECIMEN ADEQUACY ? Satisfactory for Evaluation - transformation zone component present GENERAL CATEGORIZATION ? Negative for Intraepithelial Lesion or Malignan cy ? Document reviewed and electronically signed by: ? NEWTON Palomo(ASCP) ? Report Date: ??04/09/2002 11:15 End of Report Specimen Performing Organization Address City/State/ZIP Code Phon e Number [facility] [address] [place] [address] SERVICES [facility] [address] [place] [address] documented in this encounter Visit Diagnoses Not on filedocumented in this encounter
--- OUTSIDE RECORDS SUMMARY | 2022-05-31 00:48 | XMS_ITS | Encounter Summary ---
:1965 Author Organization [facility] Address [address] [place] [address] Care Team Providers Name Role Phone Chantal Wallis MD Primary Care Provider Reason for Visit Reason Comments Skin Check Encounter Details Date Type Department Care Team Description 10/19/2012 Office Visit Dermatology Louie Lopez, Lichen planus [address] [facility] (Primary Dx) [address] [place], [place] DERMATOLOGY [id number] [place] [address] [phone] (Wo rk) Social History Tobacco Use Types Packs/Day Years Used Date Never Smoker Smokeless Tobacco: Never Used Alcohol Use Standard Drinks/Week Comments Not Asked 0 (1 standard drink = 0.6 oz pure alcoho l) Sex Assigned at Date Recorded Not on file documented as of this encounter Progress Notes Louie Lopez MD - 10/19/2012 10:40 AM EST Problem is rash, anterior shins times one year. Swetha follows up and is now 47. Her lichen aureus is cleared. However, she has a new itchy rash on the anterior shins that may have developed after insect bites on the legs. Curiously, however, these are both on the anterior shins at about the midpoint and only anteriorly present. There are none elsewhere. Physical examination reveals flat-topped polygonal purplish violaceous papules with Adriana's striae present, clusters of three to four individual papules on either anterior mid lima. There are no lesions on the wrists. There is no lesions in the mouth. she has no fingernail changes. Assessment and Plan: Lichen planus, anterior shins. a. The patient has been on lisinopril for about five or six years. At one time it was thought that maybe this was causing angioedema. However, although she has an EpiPen at home she has never had to use it, and she has had no angioedema of one or two years and remains on lisinopril, 5 mg a day. b. Lisinopril has only been associated with a lichenoid dermatitis infrequently. Would not recommend holding it, but rather begin treatment with clobetasol cream applying b.i.d. to affected sites on shins. 15 grams dispensed with one refill. c. Recommend that I see her again in another month for repeat check. May cancel if doing well. d. Discussed that in face of lack of response, could consider interlesional Kenalog injections to these sites. Would recommend good use of emollient cream following resolution of rash to legs to keep them well emolliated. Copy: Chantal Wallis M.D. documented in this encounter Plan of Treatment Not on filedocumented as of this encounter Visit Diagnoses Diagnosis Lichen planus - Primary documented in this encounter Care Teams Customer Quality Specialist Relationship Specialty Start Date End Date Chantal Wallis MD PCP - General 08/14/10 [address] [place] [address] documented as of this encounter
--- NOTE | 2022-05-31 08:22 | DI.MAMMO_ITS ---
Exam(s) MAMMO SCREENING EXAM: MAMMO SCREENING CLINICAL HISTORY: SCREENING MAMMO FOR BREAST CANCER Z12.31 TECHNIQUE: Bilateral full field digital CC and MLO mammographic images were obtained with 3D tomosyn thesis and utilizing computer aided detection (CAD). COMPARISON: Available for comparison. FINDINGS: Masses/Architectural Distortion: There are stable nodules seen in the left breast. No suspicious mas ses or areas of architectural distortion are seen. Microcalcifications: No suspicious pleomorphic-type are seen. Skin Thickening/Nipple Retraction: None. IMPRESSION: 1. No significant interval change with no specific features of malignancy noted. 2. Unless there is more urgent need, screening mammography is recommended, as per [employer] guidelines. BI-RADS Category 2 - Benign Findings Breast Density - Category B - Scattered areas of fibroglandular density Breast density category C or D implies that the patient has dense breast tissue. Dense breast tissue is very common and is not abnormal but dense breast tissue can make it harder to find cancer on a ma mmogram. Also, dense breast tissue may increase their breast cancer risk. This information about the result of the mammogram report was provided to the patient to raise their awareness. Use this report when you speak with the patient about their risks for breast cancer, which includes their family hist ory. At that time, you may recommend for more screening tests (Ultrasound or MRI) as they might be us eful based on their risk. A negative radiographic report should not delay biopsy if a dominant or clinically suspicious mass is present. Up to ten percent of cancers are not identified on mammography. A negative report may reinforce clinical impression. Adenosis and dense breasts may obscure an underlying neoplasm. False positive reports average 6 to 10%. Patient will receive a letter notifying them of these results.
== END ==
PROVIDERS: PCP Family Medicine; Visit Provider Family Medicine
DX: Z12.31 Encounter for screening mammogram for malignant neoplasm of breast (principal)
CPT/HCPCS: 77063; 77067

== ENCOUNTER 2023-04-24 17:08 | Outpatient (REF) | payer BC, SELFPAY ==
[2023-04-24 19:01] LABS: Anion Gap 6.9 mmol/L (3-11); BUN 19 mg/dL (7-18); CO2 27.1 mmol/L (21.0-32.0); CREATININE 0.9 mg/dL (0.55-1.02); Calcium 9.1 mg/dL (8.5-10.1); Chloride 105 mmol/L (98-107); Estimated GFR 73.64 (mL/min/1.73m2); Glucose 151 mg/dL (74-106); Potassium 4.4 mmol/L (3.5-5.1); Sodium 139 mmol/L (136-145); TSH (W/Ref FT4) 0.27 uIU/mL (0.36-3.74)
[2023-04-24 19:20] LABS: FREE T4 1.38 ng/dL (0.76-1.46)
[2023-04-24 19:48] LABS: Hemoglobin A1C 6.1 % (<5.7)
== END 2023-04-24 17:09 | disposition home or self-care (01) ==
LOC: NCHCN 17:08
PROVIDERS: PCP Family Medicine; Visit Provider Family Medicine
DX: I10 Essential (primary) hypertension (principal); R73.03 Prediabetes; E03.9 Hypothyroidism, unspecified
CPT/HCPCS: 80048; 83036; 84439; 84443

== ENCOUNTER 2023-06-02 16:04 | Outpatient (REF) | payer BC, SELFPAY ==
--- NOTE | 2023-06-02 15:40 | PAPFT_PTH ---
PATIENT: Swetha Herron LOC: [facility] U#:[id number] AGE/SX: 58/F ROOM: RE06/02/[address]: Isabel Moulton DO : 1965 BED: DIS: 06/02/2023 SPEC #: [id number] RECD: 06/02/23 18:14 STATUS: VARGASSidney REQ #: [id number] MACIE: 06/02/23 15:[address]: Isabel Moulton DEPT: [facility] Cytology RECD BY: Polly Green ENTERED: 06/02/23 18:15 SP TYPE: PAPFT OTHR DR: Chantal Wallis Tissues: 1 - CX/ENDOCX FOR PAP SMEARS Procedures: PAP THIN PREP/UVM Screening HPV DNA PROBE Comments: [id number]
== END 2023-06-02 16:05 | disposition home or self-care (01) ==
LOC: LBN 16:04
PROVIDERS: PCP Family Medicine; Visit Provider Obstetrics & Gynecology
DX: Z12.4 Encounter for screening for malignant neoplasm of cervix (principal); Z11.51 Encounter for screening for human papillomavirus (HPV)
CPT/HCPCS: 88142; 87624

== ENCOUNTER → 2023-06-06 00:31 | Outpatient (CLI) | payer BC, SELFPAY ==
--- NOTE | 2023-06-06 08:26 | DI.MAMMO_ITS ---
Exam(s) MAMMO SCREENING EXAM: MAMMO SCREENING CLINICAL HISTORY: SCREENING MAMMO FOR BREAST CANCER Z12.31 TECHNIQUE: Bilateral full field digital CC and MLO mammographic images were obtained with 3D tomosyn thesis and utilizing computer aided detection (CAD). COMPARISON: Available for comparison. FINDINGS: Masses/Architectural Distortion: There has been interval increase in size in 3 areas of nodularity in the left breast on the CC view. These area should be further evaluated with spot compression views. Spot compression view in the MLO view is also requested of the left breast. Microcalcifications: No suspicious pleomorphic-type are seen. Skin Thickening/Nipple Retraction: None. IMPRESSION: 1. Interval increase in size of 3 years of nodularity in the retroareolar region of the left breast b est appreciated on the CC view. 2. Spot compression CC and MLO views are requested. Left breast ultrasound should also be obtained a t that time. BI-RADS Category 0 - Assessment Incomplete: Need additional imaging evaluation Breast Density - Category B - Scattered areas of fibroglandular density Breast density category C or D implies that the patient has dense breast tissue. Dense breast tissue is very common and is not abnormal but dense breast tissue can make it harder to find cancer on a ma mmogram. Also, dense breast tissue may increase their breast cancer risk. This information about the result of the mammogram report was provided to the patient to raise their awareness. Use this report when you speak with the patient about their risks for breast cancer, which includes their family hist ory. At that time, you may recommend for more screening tests (Ultrasound or MRI) as they might be us eful based on their risk. A negative radiographic report should not delay biopsy if a dominant or clinically suspicious mass is present. Up to ten percent of cancers are not identified on mammography. A negative report may reinforce clinical impression. Adenosis and dense breasts may obscure an underlying neoplasm. False positive reports average 6 to 10%. Patient will receive a letter notifying them of these results.
== END ==
PROVIDERS: PCP Family Medicine; Visit Provider Family Medicine
DX: Z12.31 Encounter for screening mammogram for malignant neoplasm of breast (principal); R92.8 Other abnormal and inconclusive findings on diagnostic imaging of breast
CPT/HCPCS: 77063; 77067

== ENCOUNTER 2023-06-13 09:25 | Outpatient (CLI) | payer BC, SELFPAY ==
--- NOTE | 2023-06-13 08:30 | DI.RAD_ITS ---
Exam(s) XR HAND LT COMPLETE EXAM: XR HAND LT COMPLETE CLINICAL HISTORY: left thumb pain. TECHNIQUE: 2D digital imaging was performed. Three views. COMPARISON: No exams were available for comparison FINDINGS: BONES: No acute fracture is present. No bony destructive lesion is seen. JOINTS: No dislocation present. Mild degenerative changes at the 1st metacarpophalangeal joint and 1st carpal metacarpal joint. SOFT TISSUE: Normal. IMPRESSION: Mild degenerative changes. DATA REPOSITORY: RADIATION DOSE DELIVERED:
== END 2023-06-13 09:26 | disposition home or self-care (01) ==
LOC: DIORS 09:25
PROVIDERS: PCP Family Medicine; Visit Provider Physician Assistant
DX: M79.645 Pain in left finger(s) (principal)
CPT/HCPCS: 73130

== ENCOUNTER → 2023-06-16 01:41 | Outpatient (CLI) | payer BC, SELFPAY ==
--- NOTE | 2023-06-16 | DI.US_ITS ---
Exam(s) MG MAMMO SCREEN CALL BACK UNI US BREAST LT COMPLETE EXAM: MG MAMMO SCREEN CALL BACK UNI-LEFT AND COMPLETE LEFT BREAST ULTRASOUND CLINICAL HISTORY: F/U MAMMO, INTERVAL INCREASE IN SIZE 3 YRS NODULARITY LT BREAST. TECHNIQUE: Unilateral LEFT BREAST spot mammographic images obtained with 3D tomosynthesisand utilizi ng computer aided detection (CAD). . Complete breast Ultrasound was also performed, including all 4 quadrants, the retroareolar region, a nd the ipsilateral axilla. COMPARISON: Prior mammograms were reviewed. This additional imaging was performed due to findings described on the recent screening mammogram of 06/06/2023. FINDINGS: DIAGNOSTIC MAMMOGRAM: Additional mammographic views performed todaydo not dissipate the nodules. We proceeded with ultraso und COMPLETE LEFT BREAST ULTRASOUND: Ultrasound performed today reveals no evidence of solid or significant cystic lesions in all 4 quadra nts. This implies that the nodular densities probably benign intramammary lymph nodes. Scanning of the ipsilateral axilla reveals no significant adenopathy. IMPRESSION: 1. Three left breast nodules which are probably benign intramammary lymph nodes given that they are not able to be visualized on ultrasound exam today. Appropriate follow-up , as discussed by myself with the patient today, is repeat left breast mammogra m and ultrasound in 6 months. The patient was informed of these findings and recommendations by myself prior to leaving the departm ent today. BI-RADS Category 3 - 6 month - Probably Benign Finding: Recommend follow-up mammography in 6 months Breast Density - Category B - Scattered areas of fibroglandular density Breast density Category C or D implies that the patient has dense breast tissue. Dense breast tissue can make it harder to find cancer on a mammogram. Dense breast tissue is also associated with an incr eased risk of breast cancer. This information about the result of the mammogram report was provided to the patient to raise their awareness. Use this report when you speak with the patient about their risks for breast cancer, which includes their family history. At that time, you may recommend additional screening tests (Ultrasoun d or MRI) as these tests may add significant information. A negative radiographic report should not delay biopsy if a dominant or clinically suspicious mass is present. Up to ten percent of cancers are not identified on mammography. A negative report may reinforce clinical impression. Adenosis and dense breasts may obscure an underlying neoplasm. False positive reports average 6 to 10%. Patient will receive a letter notifying them of these results.
== END ==
PROVIDERS: PCP Family Medicine; Visit Provider Family Medicine
DX: Z12.31 Encounter for screening mammogram for malignant neoplasm of breast (principal); R92.8 Other abnormal and inconclusive findings on diagnostic imaging of breast
CPT/HCPCS: 76642; 77063; 77067

== ENCOUNTER 2023-08-11 20:40 | Outpatient (REF) | payer BC, SELFPAY ==
[2023-08-11 21:10] LABS: Calculated LDL 124 mg/dL (<100); Cholesterol 229 mg/dL (<200); HDL Cholesterol 63 mg/dL (40-60); TSH (W/Ref FT4) 0.03 uIU/mL (0.36-3.74); Triglyceride 212 mg/dL (<150)
[2023-08-11 21:26] LABS: FREE T4 1.75 ng/dL (0.76-1.46)
== END 2023-08-11 20:41 | disposition home or self-care (01) ==
LOC: NCHCN 20:40
PROVIDERS: PCP Family Medicine; Visit Provider Family Medicine
DX: E03.9 Hypothyroidism, unspecified (principal); E78.5 Hyperlipidemia, unspecified
CPT/HCPCS: 80061; 84439; 84443

== ENCOUNTER 2023-11-14 19:52 | Outpatient (REF) | payer BC, SELFPAY ==
[2023-11-14 16:20] LABS: TSH (W/Ref FT4) 0.76 uIU/mL (0.36-3.74)
== END 2023-11-14 19:53 | disposition home or self-care (01) ==
LOC: NCHCN 19:52
PROVIDERS: PCP Family Medicine; Visit Provider Family Medicine
DX: E03.9 Hypothyroidism, unspecified (principal)
CPT/HCPCS: 84443

== ENCOUNTER → 2023-12-18 04:52 | Outpatient (CLI) | payer BC, SELFPAY ==
--- NOTE | 2023-12-18 10:35 | DI.MAMMO_ITS ---
Exam(s) MAMMO DIAGNOSTIC UNI EXAM: MAMMO DIAGNOSTIC UNI CLINICAL HISTORY: DIAGNOSTIC, 6 MO F/U,F/U LT NODULAR DENSITIES. TECHNIQUE: Craniocaudal and mediolateral oblique Full Field Digital Mammography views of the left br east with Computer Aided Diagnosis followed by Tomosynthesis. COMPARISON: Comparison is made with prior examinations. FINDINGS: Mammography/Tomosynthesis: Masses/Architectural Distortion: There is a well-circumscribed retroareolar nodule present. No new n odules are seen. No areas of architectural distortion are present. Microcalcifictions: No suspicious pleomorphic-type are seen. Skin Thickening/Nipple Retraction: None. IMPRESSION: 1. No evidence of malignancy is noted. 2. Unless there is more urgent need, follow-up screening mammography is recommended, as per [employer] guidelines. 3. The findings were discussed with the patient on the date of the examination. BI-RADS Category 2 - Benign Findings Breast Density - Category B - Scattered areas of fibroglandular density Breast density Category C or D implies that the patient has dense breast tissue. Dense breast tissue can make it harder to find cancer on a mammogram. Dense breast tissue is also associated with an incr eased risk of breast cancer. This information about the result of the mammogram report was provided to the patient to raise their awareness. Use this report when you speak with the patient about their risks for breast cancer, which includes their family history. At that time, you may recommend additional screening tests (Ultrasoun d or MRI) as these tests may add significant information. A negative radiographic report should not delay biopsy if a dominant or clinically suspicious mass is present. Up to ten percent of cancers are not identified on mammography. A negative report may reinforce clinical impression. Adenosis and dense breasts may obscure an underlying neoplasm. False positive reports average 6 to 10%. Patient will receive a letter notifying them of these results.
== END ==
PROVIDERS: PCP Family Medicine; Visit Provider Family Medicine
DX: Z12.31 Encounter for screening mammogram for malignant neoplasm of breast (principal); R92.8 Other abnormal and inconclusive findings on diagnostic imaging of breast
CPT/HCPCS: 77061; 77065; G0279

== ENCOUNTER 2024-06-24 02:07 | Outpatient (CLI) | payer BC, SELFPAY ==
[2024-06-24 14:33] LABS: Hemoglobin A1C 5.5 % (<5.7)
[2024-06-24 15:27] LABS: ALT 27 U/L (14-59); AST 17 U/L (15-37); Albumin 3.6 g/dL (3.4-5.0); Alkaline Phosphatase 74 U/L (46-116); Anion Gap 8.7 mmol/L (3-11); BUN 16 mg/dL (7-18); Bilirubin, Total 0.28 mg/dL (0.2-1.0); CO2 26.3 mmol/L (21.0-32.0); CREATININE 0.9 mg/dL (0.55-1.02); Calcium 9.3 mg/dL (8.5-10.1); Chloride 103 mmol/L (98-107); Estimated GFR 73.19 (mL/min/1.73m2); Glucose 123 mg/dL (74-106); Potassium 4.1 mmol/L (3.5-5.1); Sodium 138 mmol/L (136-145); TSH (W/Ref FT4) 1.04 uIU/mL (0.36-3.74)
== END 2024-06-24 02:08 | disposition home or self-care (01) ==
PROVIDERS: PCP Family Medicine; Visit Provider Family Medicine
DX: E03.9 Hypothyroidism, unspecified (principal); R73.03 Prediabetes; E66.9 Obesity, unspecified; I10 Essential (primary) hypertension
CPT/HCPCS: 36415; 80053; 83036; 84443

== ENCOUNTER 2024-07-22 02:23 | Outpatient (CLI) | payer BC, SELFPAY ==
--- NOTE | 2024-07-22 | DI.RAD_ITS ---
Exam(s) XR LUMBAR SPINE COMPLETE EXAM: XR LUMBAR SPINE COMPLETE CLINICAL HISTORY: M54.31 Sciatica, RT side. TECHNIQUE: 2D digital imaging was performed. Five views. COMPARISON: No exams were available for comparison FINDINGS: BONES: No fracture or destructive lesion. Vertebral body heights are maintained. facet hypertroph y present at L 5 S1, causing mild spondylolisthesis. No spondylolysis. DISKS: Mild narrowing of the L2-3 disc space. Severe narrowing of the L3-4 disc, eccentric toward th e right where there are endplate osteophytes. Arm similar findings at L4-5. This causes mild levosc oliosis. Mild disc space narrowing at L4-5. ALIGNMENT: Lumbar spinal alignment is within normal limits. SOFT TISSUE: Normal. IMPRESSION: Degenerative disc changes, eccentric toward the right at L3-4 and L4-5. Degenerative disc changes an d facet degenerative changes at L5-S1 with mild spondylolisthesis. DATA REPOSITORY: RADIATION DOSE DELIVERED:
== END 2024-07-22 02:43 ==
LOC: DI 02:23
PROVIDERS: PCP Family Medicine; Visit Provider Family Medicine
DX: M47.817 Spondylosis without myelopathy or radiculopathy, lumbosacral region (principal)
CPT/HCPCS: 72110

== ENCOUNTER 2024-08-13 01:52 | Outpatient (CLI) | payer BC, SELFPAY ==
--- NOTE | 2024-08-13 | DI.MRI_ITS ---
Exam(s) MR LUMBAR SPINE WO EXAM: MR LUMBAR SPINE WO CLINICAL HISTORY: RT SIDE SCIATICA, M54.31. TECHNIQUE: Multiplanar multisequence MRI of the Lumbar spine was performed. COMPARISON: There are no plain films of the lumbar spine available time this MRI interpretation FINDINGS: Five lumbar vertebrae are presumed. Conus medullaris is at normal level. There is no evidence of conus mass nor subjacent clumping of in trathecal nerve roots to suggest arachnoiditis. There is a small Tarlov intra sacral cyst just below the inferior tip of the thecal sac which is at the mid S2 level. There is no associated erosion of the sacral spinal canal. This is of doubtful clinical significance. Bones:There are no fractures nor ominous osseous lesions in the lumbar vertebral bodies and visualize d sacrum. There is antro listhesis L5 upon S1 (see below). There are Modic type 1 sub endplate joe ow edema changes on the right side of L3-4 disc space. This is related to asymmetric right-sided dis c space narrowing at this level and there is a mild degenerative scoliosis convex left having its epi center at this level. With respect to the individual levels... T12-L1: Unremarkable L1-2: Normal disc height and signal. No disc herniation nor central canal stenosis.No foraminal steno sis L2-3: This level exhibits mild disc space narrowing. Eccentric lateral left osteophytes noted. Ther e is broad annular bulging. No central spinal canal stenosis nor foraminal stenosis on the right brady e. However, there is asymmetric disc bulge-protrusion at the level the exiting left neural foramen r esulting in mild left-sided foraminal stenosis at this level. There does not appear to be prominent compression of the exiting nerve root at this level.No foraminal stenosis on the opposite-right sidet here are unremarkable appearing facet joints at this level. L3-4: There is significant asymmetric disc space narrowing at this level , more prominent on the righ t side where there are also Modic type 1 sub endplate marrow edema changes. There is a lateral left disc protrusion in the floor of the exiting left neural foramen at this level but there is preserved fat signal around the exiting left nerve root at this level without flattening of the exiting nerve r oot.There is slightly more prominent mild-moderate foraminal stenosis on the right side at this level due to annular bulging and asymmetric more advanced disc height loss at this level. There are mild degenerative changes in the facet joints at this level. L4-5: This level also exhibits asymmetric right-sided disc space narrowing. Also vacuum phenomenon w ithin the disc space. Posteriorly there is annular bulging centrally which slightly indents the ante rior thecal sac at this level. Mild central canal stenosis. Laterally there is mild-moderate right- sided foraminal stenosis due to mild annular bulging in the floor of the exiting right neural foramen and vertical height loss of the foramen due to the asymmetric right-sided disc space narrowing. At the level the exiting left neural foramen there is some annular bulging but less foraminal stenosis. L5-S1: This level exhibits grade 1 anterolisthesis of L5 upon S1 with 5 millimeter anterior slippage of L5 upon S1 related to facet arthropathy. There is a central-right paracentral disc herniation at this level which extends posteriorly 8 mm and is approximately 1.8 cm wide, with significant compress ion of the thecal sac and resulting central canal stenosis at this level. The disc herniation does n ot extend into the exiting neural foramina. There is moderate foraminal stenosis on the right side p redominately related to listhesis and disc height loss. There is mild foraminal stenosis on the left side. Soft tissues: There is a nodule in the right adrenal gland partially included in the field of view of this study measuring approximately 2.3 by 1.6 cm by 1.8 cm IMPRESSION: 1. Multilevel significant findings as described individually above. 2. There is a significant central-right paracentral prominent disc herniation at L5-S1 level with sig nificant mass effect upon the thecal sac at this level. This is compounded by an element of degenera tive anterolisthesis of L5 upon S1 at this level. 3. There is asymmetric foraminal stenosis on the left side at L2-3 level as well as asymmetric right- sided foraminal stenosis at L3-4 level. Incidentally noted is a right adrenal gland nodule with measurements as above. There are no prior im aging studies of this region in our PACS system for comparison. If clinically indicated this can be further pursued with adrenal protocol CT or MRI.. DATA REPOSITORY:
== END 2024-08-13 02:12 ==
LOC: DI 01:52
PROVIDERS: PCP Family Medicine; Visit Provider Family Medicine
DX: M51.27 Other intervertebral disc displacement, lumbosacral region (principal)
CPT/HCPCS: 72148

== ENCOUNTER 2024-09-07 02:00 | Outpatient (CLI) | payer BC, SELFPAY ==
[2024-09-07 09:11] LABS: Estimated GFR 64.49 (mL/min/1.73m2)
[2024-09-07] MEDS: Omnipaque 350 MG/ML 500 ML BTL-Imaging package 100 ML IJ (09:55)
[2024-09-07] MEDS: Normal Saline - Diluent 50 ML VIAL IJ (09:56)
--- NOTE | 2024-09-07 09:56 | DI.CT_ITS ---
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 Liver: Normal density. There are multiple hepatic cysts. The largest is in the left lobe and measure s 1.9 cm. No suspicious hepatic masses are seen. Portal, Superior Mesenteric, and Splenic Veins: Unremarkable. Gallbladder and Biliary Tract: No radiodense calculus or dilation. Pancreas: Normal density, no abnormal calcifications or inflammatory process. Spleen: There are few nonspecific hypodensity seen in the spleen. These may represent cysts or heman giomas. Adrenals: The left adrenal gland is unremarkable. There is a 1.9 x 1.8 cm right adrenal mass. On th e noncontrast examination, the Hounsfield units are 5.8. On the portal venous examination, Hounsfiel d units are 50. On the 15 minutes delayed images, the Hounsfield units are 23. The findings would b e consistent with an adrenal adenoma. Kidneys: Normal size, contour and axis. No radiodense stones or obstructive uropathy. No masses seen. Abdominal Aorta: Abdominal portion non-dilated. Atherosclerotic calcification is present. Bowel: No obstruction or bowel wall thickening. Peritoneal Cavity: No ascites, collection or mesenteric inflammatory response. No free air. Lymph Nodes: Within normal limits. Bones: Within normal limits for the patient's age. Soft Tissues: There is a small fat containing umbilical hernia. IMPRESSION: 1.9 x 1.8 cm right adrenal mass. The findings are most suggestive of an adrenal adenoma. An MRI may be obtained for further characterization. A follow-up examination in 6 months is recommended to doc ument stability. RADIATION DOSE DELIVERED: 1,473.09mGy.cm Total DLP DATA REPOSITORY: All CT scans at this facility are submitted to the National Radiology Data Registry (NRDR) Dose Index Registry (DIR) with the [employer] (A[employer]). RADIATION OPTIMIZATION: All CT scans at this facility use at least one of these dose optimization te chniques: automated exposure control; mA and/or kV adjustment per patient size (includes targeted exa ms where dose is matched to clinical indication); or iterative reconstruction.
[2024-09-08 09:46] LABS: DHEA Sulfate 219 ug/dL (30-182)
[2024-09-12 16:05] LABS: Renin Activity, Plasma 21 ng/mL/h
[2024-09-14 22:51] LABS: Aldosterone, P 4.5 ng/dL (<=21)
== END 2024-09-07 02:20 ==
LOC: DI 02:00
PROVIDERS: PCP Family Medicine; Visit Provider Family Medicine
DX: D49.7 Neoplasm of unspecified behavior of endocrine glands and other parts of nervous system (principal)
CPT/HCPCS: 36415; 82088; 82533; 82627; 74170; 82565; 84244

== ENCOUNTER 2024-09-23 04:13 | Outpatient (CLI) | payer BC, SELFPAY ==
[2024-09-27 12:37] LABS: Renin Activity, Plasma 2.6 ng/mL/h
[2024-09-28 17:18] LABS: Aldosterone, P <4.0 ng/dL (<=21)
== END 2024-09-23 04:14 | disposition home or self-care (01) ==
LOC: LBO 04:13
PROVIDERS: PCP Family Medicine; Visit Provider Family Medicine
DX: D49.7 Neoplasm of unspecified behavior of endocrine glands and other parts of nervous system (principal)
CPT/HCPCS: 36415; 82088; 82533; 84244

== ENCOUNTER 2025-01-13 01:27 | Outpatient (CLI) | payer BC, SELFPAY ==
--- NOTE | 2025-01-13 | DI.MAMMO_ITS ---
Exam(s) MAMMO SCREENING EXAM: MAMMO SCREENING CLINICAL HISTORY: SCREENING. TECHNIQUE: Bilateral full field digital CC and MLO mammographic images were obtained with 3D tomosyn thesis and utilizing computer aided detection (CAD). COMPARISON: Prior mammograms were reviewed. Prior breast ultrasound of May 2023 was also reviewed. FINDINGS: There has been no significant change in the appearance and distribution of the fibroglandular tissue. There are no CAD designations. There are no new right breast findings. In the left breast there is a slightly lobulated noncalcified nodule measuring 6 x 5 mm located 3 cm in from the nipple on the MLO view and 3 cm in from the nipple on the craniocaudal view. However, th is nodule is unchanged from at least 2016 and therefore benign. There are no malignant-appearing microcalcifications in this region or elsewhere in either breast There is no significant architectural distortion nor skin thickening-retraction. IMPRESSION: Stable benign-appearing left breast finding as described above. No radiographic evidence of malignan cy. BI-RADS Category 2 - Benign Findings Breast Density - Category B - Scattered areas of fibroglandular density Breast density Category C or D implies that the patient has dense breast tissue. Dense breast tissue can make it harder to find cancer on a mammogram. Dense breast tissue is also associated with an incr eased risk of breast cancer. This information about the result of the mammogram report was provided to the patient to raise their awareness. Use this report when you speak with the patient about their risks for breast cancer, which includes their family history. At that time, you may recommend additional screening tests (Ultrasoun d or MRI) as these tests may add significant information. A negative radiographic report should not delay biopsy if a dominant or clinically suspicious mass is present. Up to ten percent of cancers are not identified on mammography. A negative report may reinforce clinical impression. Adenosis and dense breasts may obscure an underlying neoplasm. False positive reports average 6 to 10%. Patient will receive a letter notifying them of these results.
--- NOTE | 2025-01-13 | DI.DEXA_ITS ---
Exam(s) XR DEXA BONE DENSITY W/WO MANINDER EXAM: XR DEXA BONE DENSITY W/WO MANINDER CLINICAL HISTORY: MENOPAUSE PRESENT, N95.1, MENOPAUSAL FEMALE CLIMACTERIC STATES, SCREENING TECHNIQUE: Routine DEXA evaluation of the lumbar spine, hip, or forearm. COMPARISON: No exams were available for comparison FINDINGS: Performed on a Hologic unit. Lateral image: No compression fracture evident. Lumbar Spine total T-score: -0.8 Hip total T-score:-0.8 Independent reading at the level of the femoral neck yields T-score of -1.5 Forearm total T-score: -1.1 IMPRESSION: Bone mineral density measures in the osteopenia range. Fracture risk is moderate. Note: Any spine fracture indicates 5x risk for subsequent spine fracture and 2x risk for subsequent h ip fracture. World Health Organization criteria for BMD interpretation classify patients: Normal...... T- Score at or above -1.0 Osteopenic... T- Score between -1.0 and -2.5 Osteoporosis... T-Score at or below -2.5
== END 2025-01-13 01:47 ==
LOC: DI 01:27
PROVIDERS: PCP Family Medicine; Visit Provider Family Medicine
DX: Z13.820 Encounter for screening for osteoporosis (principal); N95.1 Menopausal and female climacteric states; M85.89 Other specified disorders of bone density and structure, multiple sites
CPT/HCPCS: 77063; 77067; 77080

== ENCOUNTER 2025-03-03 09:30 | Outpatient (REF) | payer BC, SELFPAY ==
[2025-03-04 09:02] LABS: DHEA Sulfate 155 ug/dL (30-182)
== END 2025-03-03 09:31 | disposition home or self-care (01) ==
LOC: NCHCN 09:30
PROVIDERS: PCP Family Medicine; Visit Provider Family Medicine
DX: D49.7 Neoplasm of unspecified behavior of endocrine glands and other parts of nervous system (principal)
CPT/HCPCS: 82533; 82627

== ENCOUNTER 2025-03-17 00:26 | Outpatient (CLI) | payer BC, SELFPAY ==
--- NOTE | 2025-03-17 | DI.CT_ITS ---
Exam(s) CT ABDOMEN WO/W EXAM: CT ABDOMEN WO/W CLINICAL HISTORY: NEOPLASM OF UNSPECIFIED BEHAVIOR OF ENDOCRINE. TECHNIQUE: Imaging Protocol: Axial computed tomography images with coronal and sagittal reformatted images were created and reviewed CONTRAST MATERIAL: Intravenous: Omnipaque 350 Contrast volume:75 ml Oral: / no COMPARISON: CT CT ABDOMEN WO/W from 09/07/2024 FINDINGS: ABDOMEN: Lung Bases: No acute findings. Liver: Normal density. Stable cysts. No suspicious mass. Gallbladder and biliary tract: No radiodense calculus. No biliary dilation. Pancreas: Normal density, no abnormal calcifications or inflammatory process. Spleen: Normal. Kidneys: Normal size, contour and axis. No radiodense stones or obstructive uropathy. No suspicious masses seen. Adrenal glands: Circumscribed 1.9 centimeter right adrenal nodule, unchanged from prior. Pre contrast Hounsfield units are consistent with were, consistent with an adenoma. Washout characteristics also consistent with an adenoma. Bowel: Unremarkable. Abdominal Aorta: Abdominal portion non-dilated. Lymph nodes: Within normal limits. Bones: Unremar degenerative changes in lower lumbar spine. Soft tissues: Unremarkable. IMPRESSION: Stable right adrenal adenoma. No follow-up recommended. RADIATION DOSE DELIVERED: !Error Total DLP DATA REPOSITORY: All CT scans at this facility are submitted to the National Radiology Data Registry (NRDR) Dose Index Registry (DIR) with the [employer] (ACR). RADIATION OPTIMIZATION: All CT scans at this facility use at least one of these dose optimization techniques: automated exposure control; mA and/or kV adjustment per patient size (includes targeted exams where dose is matched to clinical indication); or iterative reconstruction.
[2025-03-17 09:05] LABS: CREATININE 0.9 mg/dL (0.55-1.02); Estimated GFR 72.73 (mL/min/1.73m2)
[2025-03-17] MEDS: Normal Saline - Diluent 50 ML VIAL IJ (09:22)
[2025-03-17] MEDS: Omnipaque 350 MG/ML 500 ML BTL-Imaging package IJ (09:23)
== END 2025-03-17 00:46 ==
LOC: DI 00:26
PROVIDERS: PCP Family Medicine; Visit Provider Family Medicine
DX: D49.7 Neoplasm of unspecified behavior of endocrine glands and other parts of nervous system (principal)
CPT/HCPCS: 74170; 82565

== ENCOUNTER 2025-05-26 17:34 | Emergency (ER) | payer BC, SELFPAY ==
[2025-05-26 17:42] VITALS: BP 127/87; PULSE 98; RESP 18; TEMP 36.5; O2SAT 98
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
--- NOTE | 2025-05-26 20:44 | DI.RAD_ITS ---
Exam(s) XR FOOT RT COMPLETE EXAM: XR FOOT RT COMPLETE CLINICAL HISTORY: R foot pain. TECHNIQUE: 2D digital imaging was performed. Three views. COMPARISON: No exams were available for comparison FINDINGS: BONES: There is intra-articular fracture of the proximal phalanx of the great toe. There is mild step-off at the articular surface as well as some comminution. No additional fractures are seen. No bony destructive lesion is seen. JOINTS: No dislocation present. SOFT TISSUE: Normal. IMPRESSION: Comminuted intra-articular fracture of the distal aspect of the proximal phalanx of the great toe. The preliminary [facility] report was reviewed. DATA REPOSITORY: RADIATION DOSE DELIVERED:
[2025-05-26 21:26] VITALS: BP 127/87; PULSE 98; RESP 18; TEMP 36.5; O2SAT 98
--- NOTE | 2025-05-26 21:44 | DI.[facility]_ITS ---
PROCEDURE INFORMATION: Exam: XR Right Foot Exam date and time: 05/26/2025 8:45 PM Age: 60 years old Clinical indication: Other: R foot pain TECHNIQUE: Imaging protocol: Radiologic exam of the right foot. Views: 3 or more views. COMPARISON: CR XR KNEE RT 3V AP,LAT,AL 02/28/2022 2:49 PM FINDINGS: Bones/joints: Fracture involving the proximal phalanx of the 1st toe extending into the DIP joint. Calcaneal spur. Mild osteoarthritic changes involving the interphalangeal joints. Soft tissues: Normal. IMPRESSION: Fracture involving the proximal phalanx of the 1st toe extending into the DIP joint. Dictated and Authenticated by: Toño Sarabia MD. Orderin Nadya Phipps MD
== END 2025-05-26 21:28 | disposition home or self-care (01) ==
PROVIDERS: Emergency Provider Physician Assistant; PCP Family Medicine
DX: S90.31XA Contusion of right foot, initial encounter (principal); W22.8XXA Striking against or struck by other objects, initial encounter
CPT/HCPCS: 99283; 73630

== ENCOUNTER 2025-06-03 10:17 | Outpatient (REF) | payer BC, SELFPAY ==
[2025-06-03 16:04] LABS: Anion Gap 8.6 mmol/L (3-11); BUN 17 mg/dL (7-18); CO2 26.4 mmol/L (21.0-32.0); Calcium 9.5 mg/dL (8.5-10.1); Chloride 107 mmol/L (98-107); Estimated GFR 64.09 (mL/min/1.73m2); Glucose 95 mg/dL (74-106); Potassium 4.2 mmol/L (3.5-5.1); Sodium 142 mmol/L (136-145); TSH (W/Ref FT4) 2.17 uIU/mL (0.36-3.74)
[2025-06-03 16:50] LABS: Hemoglobin A1C 5.4 % (<5.7)
== END 2025-06-03 10:18 | disposition home or self-care (01) ==
LOC: NCHCN 10:17
PROVIDERS: PCP Family Medicine; Visit Provider Family Medicine
DX: R73.03 Prediabetes (principal); I10 Essential (primary) hypertension; E03.9 Hypothyroidism, unspecified
CPT/HCPCS: 80048; 83036; 84443

== ENCOUNTER 2025-06-20 03:33 | Outpatient (CLI) | payer BC, SELFPAY ==
--- NOTE | 2025-06-20 06:00 | DI.RAD_ITS ---
Exam(s) XR TOE RT GREAT EXAM: XR TOE RT GREAT CLINICAL HISTORY: ? any displacement,displaced fx phalanx rt great toe,s92.401a. TECHNIQUE: 2D digital imaging was performed. COMPARISON: CR,XR XR FOOT RT COMPLETE from 05/26/2025 FINDINGS: 3 views Previously described fracture of the proximal phalanx of the great toe is again noted. Fracture lines are still visible and again noted to involve the interphalangeal joint. There is no significant further displacement. IMPRESSION: Proximal phalanx great toe fracture lines still visible. DATA REPOSITORY: RADIATION DOSE DELIVERED:
== END 2025-06-20 03:53 ==
LOC: DI 03:33
PROVIDERS: PCP Family Medicine; Visit Provider Podiatrist
DX: S92.411A Displaced fracture of proximal phalanx of right great toe, initial encounter for closed fracture (principal); X58.XXXA Exposure to other specified factors, initial encounter
CPT/HCPCS: 73660

== ENCOUNTER 2025-07-18 03:31 | Outpatient (CLI) | payer BC, SELFPAY ==
--- NOTE | 2025-07-18 08:56 | DI.RAD_ITS ---
Exam(s) XR TOE RT GREAT EXAM: XR TOE RT GREAT CLINICAL HISTORY: ? healing,displaced fx rt great toe,edema rt foot, rt foot pain,s92.401a. TECHNIQUE: 2D digital imaging was performed. Three images were obtained. COMPARISON: CR XR TOE RT GREAT from 06/20/2025 FINDINGS: BONES: There is no change in alignment of the comminuted intra-articular fracture of the proximal phalanx of the great toe. There is no new fracture. No bony destructive lesion is seen. JOINTS: No dislocation present. SOFT TISSUE: Normal. IMPRESSION: Stable alignment of the fracture of the proximal phalanx of the great toe. DATA REPOSITORY: RADIATION DOSE DELIVERED:
== END 2025-07-18 03:51 ==
LOC: DI 03:31
PROVIDERS: PCP Family Medicine; Visit Provider Podiatrist
DX: S92.411A Displaced fracture of proximal phalanx of right great toe, initial encounter for closed fracture (principal); M79.671 Pain in right foot; R60.0 Localized edema; X58.XXXA Exposure to other specified factors, initial encounter
CPT/HCPCS: 73660

== ENCOUNTER → 2025-08-11 06:20 | Outpatient (CLI) | payer BC, SELFPAY ==
--- NOTE | 2025-08-11 07:15 | DI.RAD_ITS ---
Exam(s) XR TOE RT GREAT EXAM: XR TOE RT GREAT CLINICAL HISTORY: ? healed,pain,edema rt foot,displaced fx rt great toe,r60.0,m79.671. TECHNIQUE: 2D digital imaging was performed. COMPARISON: CR XR TOE RT GREAT from 07/18/2025 FINDINGS: 3 views The appearance of the fracture site at the head of the proximal phalanx of the great toe is unchanged. Fractures again noted to be intra-articular and fracture line is still evident, but without further displacement. A degenerative cyst is again noted in the opposite-medial aspect of the head of the proximal phalanx of the great toe. The distal phalanx appears unremarkable. Some mild degenerative changes are noted in the interphalangeal joint of the great toe. No significant degenerative changes in the great toe metatarsophalangeal joint. Lisfranc joint appears intact. IMPRESSION: Unchanged radiographic appearance at the fracture site in the distal proximal phalanx of the great toe, unchanged from images of 07/18/2025 DATA REPOSITORY: RADIATION DOSE DELIVERED:
== END ==
LOC: DI 06:20
PROVIDERS: PCP Family Medicine; Visit Provider Podiatrist
DX: S92.401A Displaced unspecified fracture of right great toe, initial encounter for closed fracture (principal); M79.671 Pain in right foot; R60.0 Localized edema
CPT/HCPCS: 73660